=== PATIENT | female | born 2000 | race Caucasian/White ===

== ENCOUNTER → 2020-12-03 | Outpatient (CLI) | payer OTHER ==
--- NOTE | 2020-12-03 18:46 | REP ---
INDICATION: CHEST PAIN AND TIGHTNESS, DYSPNEA. Episodic exertional difficulties with pain tightness and dyspnea wheezing and coughing. COMPARISON: None. TECHNIQUE: Helical scanning is acquired. 3 mm axial images are generated. Coronal and sagittal MPR and coronal MIP images are generated. FINDINGS: Digital preliminary teacher kindergarten radiographs unremarkable. Nipple jewelry is noted bilaterally and incidentally. On axial CT images, there is a curvilinear metallic density in the upper-outer quadrant of the left breast. The patient gives a history of previous breast biopsy. No extra thoracic mass or adenopathy is seen. There is moderate stool in the visualized loops of colon in the upper abdomen. There is a peripheral low-density area in the spleen posterolaterally measuring 1.9 cm in greatest diameter. This is compatible with a small splenic cyst. Visualized upper abdominal structures are otherwise unremarkable. No hilar or mediastinal mass or adenopathy is seen. Aorta appears normal in caliber and contour. Thyroid lobes are normal and homogeneous as visualized. On lung window settings, the lung herrera are clear. No infiltrate is seen. No abnormal pulmonary nodule or lung mass lesion is seen. There is no evidence of atelectasis or fibrosis. No endobronchial or endotracheal abnormality is observed. No extrinsic or vascular lesion is appreciated. Bone window settings show no bony destructive lesion. IMPRESSION: 1. Small cyst in the spleen noted incidentally. 2. Moderate stool stool visualized in the upper colon. 3. No active cardiopulmonary disease. <Electronically signed by Levi Ramos > 12/03/20 [id number]
== END ==
LOC: M RAD 07:24
PROVIDERS: ATTEND Physician Assistant
DX: R06.00 Dyspnea, unspecified (principal); R07.89 Other chest pain

== ENCOUNTER → 2021-01-22 | Outpatient (CLI) | payer OTHER ==
[~2021-01-22] MED LIST: METHACHOLINE KIT (J7674) INH ONE
--- NOTE | 2021-01-22 15:27 | PFTRPT ---
Site: [facility], [address] [place], [address] ID: [id number] Name: TED STOKES Visit Date: 01/22/2021 Second ID: [id number] Referring Doctor: Dahlia Metzger Reviewing Doctor: Morgan Charlton MD Pin Ticket Machine Operator: Louis LARSON RRT Age: 20 : 2000 Sex: Female Race: Height: 64.00 Inches Weight: 150.00 Lbs BSA: 1.73 Order IDs: [id number] Requested Test(s): <RESP-PFT.METH CHAL> Diagnosis: R06.02 of albuterol for post bronchodilator. Review Status: Not Reviewed Pre-Bronch Post-Bronch Pred Actual %Pred Actual %Chng SPIROMETRY FVC (L) 3.79 4.11 108 4.06 -1 FEV1 (L) 3.30 3.53 107 3.41 -3 FEV1/FVC (%) 86 86 99 84 -2 FEF 25% (L/sec) 5.90 6.28 106 5.88 -6 FEF 50% (L/sec) 4.74 4.76 100 4.52 -4 FEF 75% (L/sec) 2.09 2.12 101 1.65 -22 FEF 25-75% (L/sec) 3.70 4.02 108 3.59 -10 FEF Max (L/sec) 6.87 6.76 98 6.23 -7 FIVC (L) 3.86 3.05 -20 FIF 50% (L/sec) 4.20 6.92 164 3.71 -46 FIF Max (L/sec) 7.10 4.67 -34 Expiratory Time (sec) 6.91 6.44 -6 Back Extrap Vol (L) 0.11 0.12 12 Time To FEFmax (sec) 0.101 0.111 9
== END ==
LOC: M CARPUL 14:35
PROVIDERS: ATTEND Nurse Practitioner Adult Health
DX: R06.02 Shortness of breath (principal)
CPT/HCPCS: 94070; J7674

== ENCOUNTER 2021-03-05 09:57 | Emergency (ER) | payer OTHER ==
[~2021-03-05] VITALS: Ht 162.6 cm; Wt 68.1 kg
[2021-03-05] MEDS ORDERED: CONC18TA14 PO (10:09)
[2021-03-05] MEDS ORDERED: LEVO-95 PO (10:09)
[2021-03-05] MEDS ORDERED: BUPR15TASR PO (10:09)
[2021-03-05] MEDS ORDERED: NS 1,000 ML IV ONE (11:15)
[2021-03-05 11:58] LABS: BASO % 0.2 % (0.0-1.0); EOS # 0.2 10^3/uL (0.0-0.5); EOS % 2.1 % (0.0-3.0); HEMATOCRIT 38.9 % (36.0-47.0); HEMOGLOBIN 12.8 g/dl (12.0-15.5); LYMPH # 1.9 10^3/uL (1.5-5.0); LYMPH % 20.9 % (24.0-44.0); MEAN CORPUSCULAR HGB CONC 32.9 g/dl (32.0-36.5); MEAN CORPUSCULAR VOLUME 91.3 fl (80.0-96.0); MONO # 0.8 10^3/uL (0.0-0.8); MONO % 9.1 % (2.0-8.0); NEUTROPHILS # 6.2 10^3/uL (1.5-8.5); NEUTROPHILS % 67.4 % (36.0-66.0); PLATELET COUNT, AUTOMATED 234 10^3/uL (150-450); RED BLOOD COUNT 4.26 10^6/uL (4.00-5.40); WHITE BLOOD COUNT 9.2 10^3/uL (4.0-10.0)
[2021-03-05 12:48] LABS: BLOOD UREA NITROGEN 12 MG/DL (7-18); CALCIUM LEVEL 9.3 MG/DL (8.5-10.1); CARBON DIOXIDE LEVEL 29 MEQ/L (21-32); CHLORIDE LEVEL 105 MEQ/L (98-107); GLOMERULAR FILTRATION RATE > 60.0 (>60); GLUCOSE, FASTING 80 MG/DL (70-100); HCG, SERUM QUANTITATIVE < 1.0 MIU/ML; POTASSIUM SERUM 3.8 MEQ/L (3.5-5.1); SODIUM LEVEL 139 MEQ/L (136-145)
--- NOTE | 2021-03-05 12:50 | REP ---
INDICATION: RIGHT FLANK PAIN, RECURRENT UTI. COMPARISON: None. TECHNIQUE: Real-time sonographic evaluation of the kidneys is performed. FINDINGS: Renal cortical echogenicity pattern is normal bilaterally and contours are smooth. There is no evidence of hydronephrosis, cyst, mass, or calculus in either kidney. The right kidney measures 10.1 x 5.9 x 5.8 cm. Left renal dimensions are 9.7 x 4.8 x 5.4 cm. The urinary bladder is unremarkable. Incidental note is made of a cyst in the superior spleen 1.9 cm in diameter, as well as a calcified granuloma just inferior to that. IMPRESSION: Negative renal ultrasound. <Electronically signed by Alejandro Zhao > 03/05/21 [id number]
[2021-03-05] MEDS ORDERED: CEFD300CAP PO (13:52)
[2021-03-05 13:56] VITALS: BP 126/75
== END 2021-03-05 13:59 | disposition home or self-care (01) ==
LOC: M ED 09:57
DX: N39.0 Urinary tract infection, site not specified (principal)

== ENCOUNTER 2021-03-18 13:06 | Inpatient (IN) | payer OTHER ==
[~2021-03-18] VITALS: Ht 154.9 cm; Wt 67.3 kg
[~2021-03-18 13:06] MED LIST changes: +BUPR15TASR PO; +CEFD300CAP PO; +CONC18TA14 PO; +LEVO-95 PO; -METHACHOLINE KIT (J7674) INH ONE
[2021-03-18 14:41] LABS: HEMATOCRIT 39.2 % (36.0-47.0); HEMOGLOBIN 13.2 g/dl (12.0-15.5); MEAN CORPUSCULAR HEMOGLOBIN 30.6 pg (27.0-33.0); MEAN CORPUSCULAR HGB CONC 33.7 g/dl (32.0-36.5); PLATELET COUNT, AUTOMATED 249 10^3/uL (150-450); RED BLOOD COUNT 4.31 10^6/uL (4.00-5.40); WHITE BLOOD COUNT 11.5 10^3/uL (4.0-10.0)
[2021-03-18 15:00] LABS: AMPHETAMINES LEVEL URINE NEGATIVE (NEGATIVE); BARBITURATES URINE NEGATIVE (NEGATIVE); BENZODIAZEPINES URINE NEGATIVE (NEGATIVE); CANNABINOIDS URINE NEGATIVE (NEGATIVE); COCAINE METABOLITE URINE NEGATIVE (NEGATIVE); METHADONE URINE NEGATIVE (NEGATIVE); OPIATES URINE NEGATIVE (NEGATIVE); PHENCYCLIDINE URINE NEGATIVE (NEGATIVE)
[2021-03-18 15:02] LABS: HCG, SERUM QUALITATIVE NEGATIVE (NEGATIVE)
[2021-03-18 15:16] LABS: ACETAMINOPHEN LEVEL < 2.0 UG/ML (10.0-30.0); ALBUMIN 3.8 GM/DL (3.2-5.2); ALT/SGPT 22 U/L (12-78); BILIRUBIN,DIRECT 0.2 MG/DL (0.0-0.2); BILIRUBIN,TOTAL 0.9 MG/DL (0.2-1.0); BLOOD UREA NITROGEN 10 MG/DL (7-18); CALCIUM LEVEL 8.4 MG/DL (8.5-10.1); CARBON DIOXIDE LEVEL 25 MEQ/L (21-32); CHLORIDE LEVEL 105 MEQ/L (98-107); CREATININE FOR GFR 0.89 MG/DL (0.55-1.30); ETHYL ALCOHOL (ETHANOL) < 0.003 % (0.000-0.010); GLOMERULAR FILTRATION RATE > 60.0 (>60); GLUCOSE, FASTING 100 MG/DL (70-100); SALICYLATE LEVEL < 1.7 MG/DL (5.0-30.0); SODIUM LEVEL 138 MEQ/L (136-145); THYROID STIMULATING HORMONE 0.635 uIU/ML (0.358-3.740); TOTAL PROTEIN 7.1 GM/DL (6.4-8.2)
[2021-03-18 17:27] LABS: RSV AMPLIFICATION NEGATIVE (NEGATIVE)
[2021-03-18] MEDS ORDERED: MOM 30ML SUSPENSION UDC PO PRN (19:15)
[2021-03-18] MEDS ORDERED: MAALOX 30 ML SUSP *UDC PO PRN (19:15)
[2021-03-18] MEDS ORDERED: D-10TAB3 PO (19:20)
[2021-03-18] MEDS ORDERED: VENL150C43 PO (19:20)
[2021-03-18] MEDS ORDERED: MULTTAB20 PO (19:20)
[2021-03-18] MEDS ORDERED: ONDA-83 PO (19:20)
[2021-03-18] MEDS ORDERED: MECL-109 PO (19:20)
[2021-03-18] MEDS ORDERED: BUPR150T12 PO (19:20)
[2021-03-18] MEDS ORDERED: FISH1000 PO (19:20)
[2021-03-18] MEDS ORDERED: COMMENTS (19:24)
[2021-03-18 23:43] VITALS: BP 96/51
[2021-03-19] MEDS ORDERED: ONDANSETRON 4 MG TAB PO PRN
[2021-03-19] MEDS: LEVOTHYROXINE 150MCG TABLET (0.15MG) PO SCH (06:09)
[2021-03-19] MEDS ORDERED: INFLUENZA QUADRIVALENT PF VACCINE 0.5ML SYRINGE IM ONE (09:00)
[2021-03-19] MEDS ORDERED: VENLAFAXINE **XR** 75MG CAPSULE PO SCH (09:00)
[2021-03-19] MEDS: buPROPion **XL** TABLET 150MG (WELLBUTRIN XL) PO SCH (09:25)
[2021-03-19] MEDS: METHYLPHENIDATE ER 18 MG TABLET (CONCERTA) PO SCH (09:25)
[2021-03-19] MEDS: VITAMIN D 1,000 INTERNATIONAL UNITS TABLET PO SCH (09:25)
[2021-03-19] MEDS: ACETAMINOPHEN TAB 650MG DOSE (2X325MG) PO PRN (09:25)
[2021-03-19] MEDS ORDERED: ADVA115A INH (10:09)
[2021-03-19] MEDS ORDERED: PROAAER10 INH (10:09)
[2021-03-19] MEDS ORDERED: ALBUTEROL 90 MCG/ACT 8GM HFA INHALER INH PRN ×2 (12:45→13:35)
--- NOTE | 2021-03-19 13:34 | HPEPDOC ---
General Date of Admission March 18, 2021 at 19:12 Date of Service: March 19, 2021 Chief Complaint The patient is a 20-year-old female admitted with a reason for visit of MHE. 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 Today she denies any complaints. Home Medications Scheduled Bupropion Hcl (Bupropion Xl) 150 Mg Tab.er.24h, 150 MG PO DAILY, (Reported) Cholecalciferol (Vitamin D3) (Vitamin D3) 25 Mcg Tablet, 25 MCG PO DAILY, (Reported) Fluticasone Propion/Salmeterol (Advair Hfa 115-21 Mcg Inhaler) 12 Gm Hfa.aer.ad, 2 PUFF INH BID for ASTHMA, (Reported) Methylphenidate HCl (Concerta) 18 Mg Tab.er.24, 18 MG PO DAILY, (Reported) [place]-3 Fatty Acids/Fish Oil (Fish Oil 1,000 mg Capsule) 1 Each Capsule, 1,000 MG PO DAILY, (Reported) No122/Iron/Folic Acid ( Multi Tablet) 1 Each Tablet, 1 TAB PO DAILY, (Reported) Venlafaxine HCl (Venlafaxine HCl ER) 150 Mg Cap.er.24h, 150 MG PO DAILY, (Reported) Scheduled PRN Albuterol Sulfate (Proair Hfa) 8.5 Gm Hfa.aer.ad, 2 PUFF INH QID PRN for SHORTNESS OF BREATH, (Reported) Meclizine HCl (Motion Sickness) 25 Mg Tablet, 25 MG PO TID PRN for DIZZINESS, (Reported) Ondansetron HCl (Ondansetron HCl) 4 Mg Tablet, 4 MG PO Q6H PRN for NAUSEA OR VOMITING, (Reported) Allergies Coded Allergies: No Known Drug Allergies (Verified Allergy, Unknown, 01/21/21) Past Medical History Medical History Asthma, hypothyroid, depression, anxiety Surgical History wisdom tooth removal. Family History Significant Family History: Asthma (brother and father), Hypertension (mother), Other (Fathr from neuroendocrine tumor, also had anxiety and d epression) Social History * Smoker: non-smoker Alcohol: other (about 2 drinks 4 times a week) Drugs: denies A-FIB/CHADSVASC A-FIB History Current/History of A-Fib/PAF?: No Review of Systems Constitutional: Denies: Chills, Fever, Night Sweats Eyes: Denies: Pain, Vision change ENT: Denies: Head Aches, Ear Pain, Dysphagia Skin: Denies: Rash, Lesions, Breakdown Pulmonary: Denies: Dyspnea, Cough Cardiovascular: Denies: Chest Pain, Palpitations, Orthopnea, Paroxysmal Noc. Dyspnea, Lt Headedness Gastrointestinal: Denies: Nausea, Vomiting, Abdominal Pain, Diarrhea Genitourinary: Denies: Dysuria, Frequency, Incontinence, Retention Physical Examination General Exam: Positive: Alert, Cooperative, No Acute Distress Eye Exam: Positive: PERRLA, Conjunctiva & lids normal, EOMI; Negative: Sclera icteric ENT Exam: Positive: Atraumatic, Mucous membr. moist/pink, Pharynx Normal Chest Exam: Positive: Clear to auscultation, Normal air movement Heart Exam: Positive: Rate Normal, Regular Rhythm, Normal S1, Normal S2; Negative: Murmurs, Rubs Abdomen Exam: Positive: Normal bowel sounds, Soft; Negative: Tenderness, Hepatospenomegaly Vital Signs Vital Signs Date Time Temp Pulse Resp B/P (MAP) Pulse Ox O2 Delivery O2 Flow Rate FiO2 03/19/21 10:11 Room Air 03/18/21 23:43 97.4 106 18 96/51 (66) 97 Laboratory Data Labs 24H Laboratory Tests 2 03/18/21 14:21: Nucleated Red Blood Cells % (auto) 0.0, Urine Color YELLOW, Urine Appearance HAZY, Urine pH 6.0, Urine Specific [place] 1.005, Urine Protein NEGATIVE, Urine Glucose (UA) NEGATIVE, Urine Ketones NEGATIVE, Urine Blood NEGATIVE, Urine Nitrite NEGATIVE, Urine Bilirubin NEGATIVE, Urine Urobilinogen 0.2, Urine Leukocyte Esterase NEGATIVE, Urine WBC (Auto) 1, Urine RBC (Auto) 1, Urine Hyaline Casts (Auto) 0, Urine Bacteria (Auto) 1+H, Urine Squamous Epithelial Cells 6, Urine Sperm (Auto) , Anion Gap 8, Glomerular Filtration Rate > 60.0, Calcium Level 8.4L, Total Bilirubin 0.9, Direct Bilirubin 0.2, Aspartate Amino Transf (AST/SGOT) 19, Alanine Aminotransferase (ALT/SGPT) 22, Alkaline Phosphatase 87, Total Protein 7.1, Albumin 3.8, Albumin/Globulin Ratio 1.2, Thyroid Stimulating Hormone (TSH) 0.635, Human Chorionic Gonadotropin, Qual NEGATIVE, Salicylates Level < 1.7L, Urine Opiates Screen NEGATIVE, Urine Methadone Screen NEGATIVE, Acetaminophen Level < 2.0L, Urine Barbiturates Screen NEGATIVE, Urine Phencyclidine Screen NEGATIVE, Urine Amphetamines Screen NEGATIV E, Urine Benzodiazepines Screen NEGATIVE, Urine Cocaine Metabolite Screen NEGATIVE, Urine Cannabinoids Screen NEGATIVE, Ethyl Alcohol Level < 0.003 03/18/21 16:31: Coronavirus (COVID-19)(PCR) NEGATIVE, Influenza Type A (RT-PCR) NEGATIVE, Influenza Type B (RT-PCR) NEGATIVE, Respiratory Syncytial Virus (PCR) NEGATIVE CBC/BMP Laboratory Tests 03/18/21 14:21 Assessment/Plan 20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 Depression as per psychiatry Asthma continue home advair. Plan / VTE VTE Prophylaxis Ordered?: No MONICA DALAL MD March 19, 2021 12:42
[2021-03-19] MEDS: ADVAIR HFA 115/21MCG INHALER INH SCH ×2 (14:28→20:39)
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
[2021-03-19 16:13] VITALS: BP 118/67
[2021-03-19] MEDS: traZODone 50 MG TAB PO PRN (20:39)
[2021-03-20] MEDS: LEVOTHYROXINE 150MCG TABLET (0.15MG) PO SCH (06:04)
[2021-03-20 06:56] VITALS: BP 88/52
[2021-03-20] MEDS: ADVAIR HFA 115/21MCG INHALER INH SCH ×2 (08:58→21:42)
[2021-03-20] MEDS: METHYLPHENIDATE ER 18 MG TABLET (CONCERTA) PO SCH (08:59)
[2021-03-20] MEDS: buPROPion **XL** TABLET 150MG (WELLBUTRIN XL) PO SCH (08:59)
[2021-03-20] MEDS: VITAMIN D 1,000 INTERNATIONAL UNITS TABLET PO SCH (08:59)
[2021-03-20] MEDS: VENLAFAXINE **XR** 75MG CAPSULE PO SCH (08:59)
[2021-03-20] MEDS: ACETAMINOPHEN TAB 650MG DOSE (2X325MG) PO PRN (09:00)
--- NOTE | 2021-03-20 12:06 | MHIPNPDOC ---
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 She reports that she had a recent termination of a relationship that caused increased insecurities about herself, she is currently in the process of being med-boarded, she has financial concerns states "I am in a tight spot." Says of the pending chapter 15 that she had an emotional and disruptive reaction twice to [employer]. "I am have too many emotions attached to these stories, I can tell you but I am not sure I can do it without giving too much information." She reports that she considered allowing the case to be hea rd as a court-martial case but was told that this may also have civilian implications for her, as her record may be reported on a police record. She reports no past attempts but has had suicidal ideations. . She reports that this time of the year is very difficult for her as her father 03/26/2020 from cancer. States that she feels overwhelmed and feels that removing herself from the outside stressors would be good for her. VITAL SIGNS: See below. CURRENT MEDICATIONS: See below. 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 Speech: Is fluid, conversant, normal rate, tone and volume Language skills are intact Thought processes including: linear and goal oriented Thought content: denies depression and anxiety. Denies suicidal/homicidal ideation, planning or intent. Abstract reasoning, and computation: fair Description of associations: denies, none observed Description of abnormal or psychotic thoughts: denies, none observed. Judgment: fair Insight: fair Orientation: alert and oriented to person, place, time and situation Recent and remote memory: intact Attention span and concentration: good Language: expansive Fund of knowledge: average Mood: Euthymic Mood Affect: reactive DIAGNOSES: Major depressive disorder, single episode, mild ADHD Unspecified anxiety disorder ASSESSMENT: Patient found in room, sleeping. Patient denies that she is having suicidal ideations, reports that her last thought of self-harm was last evening with no real intent to hurt herself. She states that her anxiety stems from the Chapter 15 wondering what her sentence will be, states that she is future oriented and will stay in [place] area and go to [employer] and get a degree. Rates her depression a 2/10 and anxiety is the same. She appears to have improvement in depression and anxiety, [facility] MANAGEMENT PLAN: Continue all medications - discharge tomorrow. TIME SPENT: 25 minutes. Vital Signs Vital Signs Date Time Temp Pulse Resp B/P (MAP) Pulse Ox O2 Delivery O2 Flow Rate FiO2 03/20/21 06:56 99.0 80 16 88/52 (64) 98 Room Air Current Medications Current Medications Medications (Trade) Dose Ordered Sig/Margie Route PRN Reason Start Time Stop Time Status Last Admin Dose Admin Acetaminophen (Tylenol Tab) 650 mg Q6HP PRN PO HEADACHE or DISCOMFORT 03/18/21 19:15 03/20/21 09:00 Al Hydrox/Mg Hydrox/Simethicone (Mylanta) 30 ml Q4HP PRN PO HEARTBURN/INDIGESTION 03/18/21 19:15 Albuterol Sulfate (Proventil, Ventolin Hfa) 2 puff Q6HP PRN INH SHORTNESS OF BREATH 03/19/21 12:45 Albuterol Sulfate (Proventil, Ventolin Hfa) 2 puff QID PRN INH SHORTNESS OF BREATH 03/19/21 13:35 UNV Bupropion HCl (Wellbutrin Xl) 150 mg DAILY PO 03/19/21 09:00 03/20/21 08:59 Home Med (Med Rec Complete!) ASDIRECTED XX 03/18/21 19:25 03/18/21 19:25 DC Levothyroxine Sodium (Synthroid) 150 mcg DAILY@0600 PO 03/19/21 06:00 03/20/21 06:04 Magnesium Hydroxide (Milk Of Magnesia) 30 ml DAILYPRN PRN PO CONSTIPATION 03/18/21 19:15 Methylphenidate HCl (Concerta) 18 mg DAILY PO 03/19/21 09:00 03/20/21 08:59 Ondansetron HCl (Zofran) 4 mg Q6H PRN PO NAUSEA OR VOMITING 03/19/21 00:00 Salmeterol Xinafoate/ Fluticasone (Advair Hfa ) 2 puff BID INH 03/19/21 09:00 03/20/21 08:58 Trazodone HCl (Desyrel) 50 mg QHSP PRN PO INSOMNIA 03/18/21 19:15 03/19/21 20:39 Venlafaxine HCl (Effexor Xr) 150 mg DAILY PO 03/19/21 09:00 03/19/21 14:12 DC 03/19/21 09:25 Venlafaxine HCl (Effexor Xr) 225 mg DAILY PO 03/20/21 09:00 03/20/21 08:59 Vitamin D (Vitamin D) 1,000 units DAILY PO 03/19/21 09:00 03/20/21 08:59 Allergies Coded Allergies: No Known Drug Allergies (Verified Allergy, Unknown, 01/21/21) JOSE LOPES NP March 20, 2021 12:06
[2021-03-20 16:19] VITALS: BP 113/68
[2021-03-20] MEDS: traZODone 50 MG TAB PO PRN (21:42)
[2021-03-21] MEDS: LEVOTHYROXINE 150MCG TABLET (0.15MG) PO SCH (06:02)
[2021-03-21 06:29] VITALS: BP 110/57
[2021-03-21] MEDS: METHYLPHENIDATE ER 18 MG TABLET (CONCERTA) PO SCH (08:21)
[2021-03-21] MEDS: VITAMIN D 1,000 INTERNATIONAL UNITS TABLET PO SCH (08:21)
[2021-03-21] MEDS: ADVAIR HFA 115/21MCG INHALER INH SCH (08:21)
[2021-03-21] MEDS: VENLAFAXINE **XR** 75MG CAPSULE PO SCH (08:22)
[2021-03-21] MEDS: buPROPion **XL** TABLET 150MG (WELLBUTRIN XL) PO SCH (08:22)
[2021-03-21] MEDS ORDERED: BUPR150T12 PO (09:39)
[2021-03-21] MEDS ORDERED: LEVO150T7 PO (09:39)
[2021-03-21] MEDS ORDERED: VENL75CA47 PO (09:39)
--- NOTE | 2021-03-21 10:45 | MHDSPDOC ---
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 She reports that she had a recent termination of a relationship that caused increased insecurities about herself, she is currently in the process of being med-boarded, she has financial concerns states "I am in a tight spot." Says of the pending chapter 15 that she had an emotional and disruptive reaction twice to [employer]. "I am have too many emotions attached to these stories, I can tell you but I am not sure I can do it without giving too much information." She reports that she considered allowing the case to be heard as a court-martial case but was told that this may also have civilian implications for her, as her record may be reported on a police record. She reports no past attempts but has had suicidal ideations. . She reports that this time of the year is very difficult for her as her father 03/26/2020 from cancer. States that she feels overwhelmed and feels that removing herself from the outside stressors would be good for her. VITAL SIGNS: See below. CONSULTANTS INVOLVED: See Medical H + P by Hospitalist TREATMENT AND PROGRESS ON THE UNIT: Patient was admitted to the [facility] on a 9.39 legal status he was afforded the following treatment modalities: 1) Individual Therapy 2) Group Therapy 3) Medication Management 4) Milieu Therapy 5) Safe Environment HOSPITAL COURSE: Patient was admitted to [facility] on a 9.39 legal status. She was agreeable to medication changes and stated that she did not want to be discontinued off Effexor because this caused her withdrawal symptoms when she missed doses. This was increased to Effexor 225 mg. She was agreeable to group therapy and individual sessions. Much of depression and anxiety stemmed from this Chapter 15 and her feeling both remorseful and fearful of the consequences. 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 She is hopeful that she will be able to visit her family in [place] soon and states that her mood has improved while hospitalized. DISCHARGE ASSESSMENT: In today's interview, patient is alert and oriented, pts dress is appropriate. Hygiene and grooming is well-kempt. Smiles on approach and is pleasant and engaged in the interview. Denies depression and anxiety. Denies suicidal and homicidal ideation, planning or intent. Denies and is not observed with chaka, psychotic symptoms of delusions, bizarre thinking, obsessions, paranoia, ruminations illogical thoughts, flight of ideas or having poor insight and judgement. Patient has normal mentation, declines further hospitalization on a voluntary status and meets criteria for discharge today. Patient encouraged to return to hospital if symptoms worsen or change and encouraged to call unit if he/she/they needs to speak to provider for questions regarding medications or care. 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 Speech: Is fluid, conversant, normal rate, tone and volume Language skills are intact Thought processes including: linear and goal oriented Thought content: denies depression and anxiety. Denies suicidal/homicidal ideation, planning or intent. Abstract reasoning, and computation: fair Description of associations: denies, none observed Description of abnormal or psychotic thoughts: denies, none observed. Judgment: fair Insight: fair Orientation: alert and oriented to person, place, time and situation Recent and remote memory: intact Attention span and concentration: good Language: expansive Fund of knowledge: average Mood: Euthymic Mood Affect: reactive MEDICATIONS ON DISCHARGE: See Medication Reconciliation PLAN/FOLLOWUP ARRANGEMENTS: The amount of time spent in the coordination of care for this patient was approximately 35 minutes. ETOH/Disorder Med Rx ETOH/DRUG DISORDER RX: Offrd @ d/c & pt refused (Patient no longer smokes but does not feel that her drinking is a problem, does not want Rx) Vital Signs/I&Os Vital Signs Date Time Temp Pulse Resp B/P (MAP) Pulse Ox O2 Delivery O2 Flow Rate FiO2 03/21/21 06:29 97.7 95 16 110/57 (74) 99 Room Air Medications Scheduled Bupropion Hcl (Bupropion Xl) 150 Mg Tab.er.24h, 150 MG PO DAILY for Depression, #7 Cholecalciferol (Vitamin D3) (Vitamin D3) 25 Mcg Tablet, 25 MCG PO DAILY, (Reported) Fluticasone Propion/Salmeterol (Advair Hfa 115-21 Mcg Inhaler) 12 Gm Hfa.aer.ad, 2 PUFF INH BID for ASTHMA, (Reported) Levothyroxine Sodium (Levothyroxine Sodium) 150 Mcg Tablet, 150 MCG PO DAILY@0600 for Thyroid, #7 Methylphenidate HCl (Concerta) 18 Mg Tab.er.24, 18 MG PO DAILY, (Reported) Brilliant-3 Fatty Acids/Fish Oil (Fish Oil 1,000 mg Capsule) 1 Each Capsule, 1,000 MG PO DAILY, (Reported) No122/Iron/Folic Acid ( Multi Tablet) 1 Each Tablet, 1 TAB PO DAILY, (Reported) Venlafaxine HCl (Venlafaxine HCl ER) 75 Mg Cap.er.24h, 225 MG PO DAILY for Depression, #21 Scheduled PRN Albuterol Sulfate (Proair Hfa) 8.5 Gm Hfa.aer.ad, 2 PUFF INH QID PRN for SHORTN ESS OF BREATH, (Reported) Meclizine HCl (Motion Sickness) 25 Mg Tablet, 25 MG PO TID PRN for DIZZINESS, (Reported) Ondansetron HCl (Ondansetron HCl) 4 Mg Tablet, 4 MG PO Q6H PRN for NAUSEA OR VOMITING, (Reported) Allergies Coded Allergies: No Known Drug Allergies (Verified Allergy, Unknown, 01/21/21) JOSE LOPES NP March 21, 2021 10:45
== END 2021-03-21 11:05 | disposition home or self-care (01) | DRG 885 ==
LOC: M ED 13:06 → M ED INP 19:12 → M PSY 23:30
PROVIDERS: ADMIT Psychiatry & Neurology Psychiatry; ATTEND Psychiatry & Neurology Psychiatry
DX: F32.0 Major depressive disorder, single episode, mild (principal); R45.851 Suicidal ideations; F41.9 Anxiety disorder, unspecified; F90.9 Attention-deficit hyperactivity disorder, unspecified type; Z79.899 Other long term (current) drug therapy; E03.9 Hypothyroidism, unspecified; J45.909 Unspecified asthma, uncomplicated; I10 Essential (primary) hypertension

== ENCOUNTER 2021-09-16 11:15 | Emergency (ER) | payer OTHER ==
[~2021-09-16] VITALS: Ht 162.6 cm; Wt 66.5 kg
[~2021-09-16 11:15] MED LIST changes: +ADVA115A INH; +BUPR150T12 PO; +COMMENTS; +D-10TAB3 PO; +FISH1000 PO; +LEVO150T7 PO; +MECL-109 PO; +MULTTAB20 PO; +ONDA-83 PO; +PROAAER10 INH; +VENL150C43 PO; +VENL75CA47 PO
[2021-09-16 11:16] VITALS: BP 120/69
--- OUTSIDE RECORDS SUMMARY | 2021-09-16 11:22 | CCD | Continuity of Care Document ---
Author Stella Dias Organization Unknown Address [address] [place] [address] Phone [phone] Care Team Providers Care Electric Golf Cart Repairers Name Role Phone Aniceto Montesinos P.A.-C Unavailable Problems Active Problems Provider Date Mild persistent asthma JINA Roberts Onset: 01/23/2021 Social History Type Date Description Comments Sex Unknown Tobacco Use Start: 10/26/14 End: 10/26/19 Patient is a forme r smoker Pt smoked 3 cigarettes/day for 4-5 years Smoking Status Reviewed: 03/12/21 Patient is a former smoker Pt smoked 3 cigarettes/day for 4-5 years Allergies and adverse reactions Description No Known Drug Allergies Medications Active Medications SIG Qnty Indications Ordering Provide r Date Advair HFA 115-21mcg/Act Aerosol 2 puff twice a day 12gm J45.30 JINA Roberts 01/23/2021 Ventolin HFA 108(90Base) mcg/Act A erosol 2 puffs four times a day as needed 18units J45.30 JINA Roberts 01/23/2021 Aerochamber Plus Krish-Vu Misc use with inhaler as needed 1units J45.30 JINA Roberts 01/23/2021 Multi-Vitamin Tablets 1 by mouth every day Unknown Venlafaxine HCL ER 150mg Caps ER 2 4HR 1 tab by mouth every day Unknown 0 Bupropion Hydrochloride ER (SR) 150mg Tablets ER 12HR 1 tab by mouth daily Unknown 000 Align 4mg Capsules 1 tab by mouth every day 30caps Unknown Nitrofurantoin Monohyd Macro prn Unknown Concerta 18mg Tablets ER 1 tab by mouth every day Unknown Immunizations Description No Information Available Vital Signs Date Vital Result Comment 03/12/2021 8:52am BP Systolic 120 mmHg BP Diastolic 68 mmHg Heart Rate 90 /min O2 % BldC Oximetry 99 % Height 64 inches 5'4" Weight 149.50 lb BMI (Body Mass Index) 25.7 kg/m2 [place] Body Weight 120 lb Weight 67.813 kg BSA (Body Surface Area) 1.73 m2 01/23/2021 3:41pm BP Systolic 122 mmHg BP Diastolic 80 mmHg Heart Rate 86 /min O2 % BldC Oximetry 99 % Height 64 inches 5'4" Weight 156.00 lb BMI (Body Mass Index) 26.8 kg/m2 [place] Body Weight 120 lb Weight 70.762 kg BSA (Body Surface Area) 1.76 m2 Results Test Acquired Date Facility Test Result H/L Range Note FVL/Yaya 03/12/2021 [facility] SEE IMAGE FVC-Pred 3.78 L FVC-Pre 4.37 L FVC-%Pred-Pre 115 L FVC-LLN 3.09 L Fev1-Pred 3.31 L Fev1-Pre 3.77 L Fev1-%Pred-Pre 113 L Fev1-LLN 2.72 L Fev6-Pred 3.79 L Fev6-Pre 4.37 L Fev6-%Pred-Pre 115 L Fev6-LLN 3.11 L Kpy5pmc-Znwc 86 % Gyw8omy-Jnn 86 % Qrn9fuu-%Pred-Pre 99 % Tld1ptq-OGX 77 % Nbg6tam-Onfw 100 % Xsn3ugc-Psf 100 % Eex6psn-%Pred-Pre 99 % FEFMax-Pred 6.85 L/E/sec FEFMax-Pre 7.17 L/E/sec FEFMax-%Pred-Pre 104 L/E/sec FEFMax-LLN 5.13 L/E/sec Qja8403-Adct 3.72 L/E/sec Rzm6041-Ybn 4.21 L/E/sec Boy5610-%Pred-Pre 113 L/E/sec Nue7094-RGX 2.48 L/E/sec ExpTime-Pre 5.81 sec Jrn1cfo6-Gqhe 87 % Mtr0ann3-Zkv 86 % Uhy2npp0-%Pred-Pre 99 % Ane4bji0-CXH 78 % Procedures Date Code Description Status 03/12/2021 34166 Office/Outpatient Established Lo w MDM 20-29 Min Completed 03/12/2021 48300 Spirometry Completed Medical Devices Description No Information Available Encounters Type Date Location Provider Dx Diagnosis Office Visit 03/12/2021 9:00a [facility] JINA Townsend J45.30 Mild persistent asthma, uncomplicated Assessments Date Code Description Provider 03/12/2021 J45.30 Mild persistent asthma, uncompli cated JINA Roberts Plan of Treatment Future Appointment(s):* 08/21/2021 8:00 am - JINA Roberts at [facility] 03/12/2021 - JINA Roberts* J45.30 Mild persistent asthma, uncomplicated * * New Labs:* FVL/Yaya, Scheduled: 08/21/21 * Follow up:* 1. Follow up visit in 5-6 months with fvl/spirometry. Functional Status Description No Information Available Mental Status Description No Information Available Referrals Description No Information Available
--- OUTSIDE RECORDS SUMMARY | 2021-09-16 11:22 | CCD | Continuity of Care Document ---
Author Stella Rodriguez PA Organization Unknown Address [facility] [place] [address] Phone [phone] Care Team Providers Care Flush Tester Name Role Phone [facility] MeddaHailee morrissey ghanshyam AUTM Unavailable Problems Active Problems Provider Date Female stress incontinence ODALYS Mayen Onset: 06/26/2021 History of chronic urinary tract infection ODALYS Pop Onset: 06/26/2021 Social History Type Date Description Comments Sex Unknown Tobacco Use Start: Unknown Never Smoked Cigarettes Tobacco Use Start: Unknown Never Smoked Cigars Tobacco Use Start: Unknown Never Smoked A Pipe Tobacco Use Start: Unknown Never Used Smokeless Tobacco ETOH Use Occasionally consumes alcohol Tobacco Use Start: Unknown Patient is a current smoker, smo kes every day Recreational Drug Use Denies Drug Use Allergies, Adverse Reactions, Alerts Description No Known Drug Allergies Medications Active Medications SIG Qnty Indications Ordering Provide r Date Wellbutrin SR 150mg Tablets ER 12H R 1 by mouth daily x 3 days, then 1 by mouth bid. Unkno wn Venlafaxine HCL 37.5mg Tablets 3 by mouth every day Unknown Collagen Ultra Capsules Unknown Vitamin Tablets Unknown Vitamin D3 25mcg (1000 Ut) Capsule s 1 by mouth every day Unknown Paragard Intrauterine Copper Contracepti ve T380a T380a IUD 1 iud for 10 years Unknown Immunizations Description No Information Available Vital Signs Date Vital Result Comment 05/17/2021 3:38pm BP Systolic 121 mmHg BP Diastolic 76 mmHg Heart Rate 94 /min O2 % BldC Oximetry 96 % Weight 145.00 lb Weight 65.772 kg Height 64 inches 5'4" BMI (Body Mass Index) 24.9 kg/m2 BSA (Body Surface Area) 1.71 m2 Results Test Acquired Date Facility Test Result H/L Range Note Inhouse [facility]a 05/17/2021 In Office [facility] Color Jaqueline Normal: Yellow Ua Appearance clear Normal: Clear Spec [place] 1.010 1.001-1.030 Ua PH Test Strip 6 5-9 Leukocytes - Normal: Negative Ua Nitrate - Normal: Negative Ua Protein - Normal: Negative Inhouse Glucose - Normal: Negative Ua Ketones - Noraml: Negative Urobilinogen - Normal: Negative Ua Bilirubin - Normal: Negative Blood - Noraml: Negative Procedures Date Code Description Status 05/17/2021 58255 Office/Outpatient New Low MDM 30 -44 Minutes Completed Medical Devices Description No Information Available Encounters Description No Information Available Assessments Date Code Description Provider 06/26/2021 Z87.440 Personal history of urinary (tra ct) infections ODALYS Mayen 06/26/2021 N39.3 Stress incontinence (female) (ma le) ODALYS Mayen 05/17/2021 N39.0 Urinary tract infection, site no t specified Tommy Robert M.D. 05/17/2021 Z71.2 Person consulting fo r explanation of examination or test findings Tommy Robert M.D. 05/17/2021 F17.210 Nicotine dependence, cigarettes, uncomplicated Tommy Robert M.D. Plan of Treatment 06/26/2021 - ODALYS Mayen* Z87.440 Personal history of urinary (tract) infections* Comments:* Patient with recurrent urinary tract infections and history of pyelonephritis and history of ovarian cyst was consulted via phone to discuss ultrasound results. Patient states that she is doing well without any UTI infection since last visit. Physical examination and urinalysis were not performed as this is a telemedicine consultation. Renal ultrasound done on 06/20/21 noted grossly unremarkable appearance of both kidneys. Renal and bladder US reviewed with Dr. Robert and the patient. No obvious findings that would make patient more prone to UTIs. Various options discussed including cystoscopy to further evaluate underlying cause of her UTI. We will schedule the patient for a cystoscopy with possible urethral di latation for further evaluation. Further treatment plan and follow up will be adjusted as needed depending on the cystoscopy findings. General and specific UTI preventive measures discussed with patient including increase in hydration and acidification of urine, proper bowel regimen and perineal hygiene.Patient voiced understanding and agreement with plan of care. * Follow up:* PRN * N39.3 Stress incontinence (female) (male)* Comments:* Patient reports likely stress in nature given the fact patient states she leaks small amounts with heavy exercises. She has not yet had any kids but plans to in the future. Once cystoscopy is done, if she would like to further pursue treatment, will refer for pelvic floor therapy. Advised Kegal exercises in the meantime. * Follow up:* PRN Functional Status Description No Information Available Mental Status Description No Information Available Referrals Description No Information Available
--- OUTSIDE RECORDS SUMMARY | 2021-09-16 11:22 | CCD ---
Author Author [facility] Organization [facility] Address Unknown Phone Unavailable Care Team Providers Care Player Development Executive Name Role Phone NO, PCP Unavailable Unavailable Nicola, L Dahlia DATA ENTRY SPECIALIST Unavailable Unavailable Nicola, L Dahlia DATA ENTRY SPECIALIST Unavailable Unavailable Nicola, L Dahlia DATA ENTRY SPECIALIST Unavailable Unavailable Nicola, L Dahlia DATA ENTRY SPECIALIST Unavailable Unavailable Nicola, L Dahlia DATA ENTRY SPECIALIST Unavailable Unavailable Nicola, L Dahlia DATA ENTRY SPECIALIST Unavailable Unavailable Nicola, L Dahlia DATA ENTRY SPECIALIST Unavailable Unavailable Nicola, L Dahlia DATA ENTRY SPECIALIST Unavailable Unavailable Nicola, L Dahlia DATA ENTRY SPECIALIST Unavailable Unavailable Nicola, L Dahlia DATA ENTRY SPECIALIST Unavailable Unavailable Nicola, L Dahlia DATA ENTRY SPECIALIST Unavailable Unavailable Nicola, L Dahlia DATA ENTRY SPECIALIST Unavailable Unavailable Nicola, L Dahlia DATA ENTRY SPECIALIST Unavailable Unavailable Nicola, L Dahlia DATA ENTRY SPECIALIST Unavailable Unavailable Nicola, L Dahlia DATA ENTRY SPECIALIST Unavailable Unavailable Nicola, L Dahlia DATA ENTRY SPECIALIST Unavailable Unavailable Nicola, L Dahlia DATA ENTRY SPECIALIST Unavailable Unavailable Nicola, L Dahlia DATA ENTRY SPECIALIST Unavailable Unavailable Nicola, L Dahlia DATA ENTRY SPECIALIST Unavailable Unavailable Nicola, L Dahlia DATA ENTRY SPECIALIST Unavailable Unavailable Nicola, L Dahlia DATA ENTRY SPECIALIST Unavailable Unavailable Nicola, L Dahlia DATA ENTRY SPECIALIST Unavailable Unavailable Nicola, L Dahlia DATA ENTRY SPECIALIST Unavailable Unavailable Nicola, L Dahlia DATA ENTRY SPECIALIST Unavailable Unavailable Nicola, L Dahlia DATA ENTRY SPECIALIST Unavailable Unavailable Chadd Oropeza MD Unavailable Unavailable Chadd Oropeza MD Unavailable Unavailable Chadd Oropeza MD Unavailable Unavailable Chadd Oropeza MD Unavailable Unavailable Chadd Oropeza MD Unavailable Unavailable Chadd Oropeza MD Unavailable Unavailable Anthony CANO MD Unavailable Unavailable Anthony CANO MD Unavailable Unavailable Anthony CANO MD Unavailable Unavailable Anthony CANO MD Unavailable Unavailable OBEN, T TOMMY MD Unavailable Unavailable OBEN, T TOMMY MD Unavailable Unavailable OBEN, T TOMMY MD Unavailable Unavailable OBEN, T TOMMY MD Unavailable Unavailable OBEN, T TOMMY MD Unavailable Unavailable OBEN, T TOMMY MD Unavailable Unavailable OBEN, T TOMMY MD Unavailable Unavailable OBEN, T TOMMY MD Unavailable Unavailable OBEN, T TOMMY MD Unavailable Unavailable OBEN, T TOMMY MD Unavailable Unavailable OBEN, T TOMMY MD Unavailable Unavailable OBEN, T TOMMY MD Unavailable Unavailable OBEN, T TOMMY MD Unavailable Unavailable OBEN, T TOMMY MD Unavailable Unavailable OBEN, T TOMMY MD Unavailable Unavailable OBEN, T TOMMY MD Unavailable Unavailable OBEN, T TOMMY MD Unavailable Unavailable OBEN, T TOMMY MD Unavailable Unavailable OBEN, T TOMMY MD Unavailable Unavailable OBEN, T TOMMY MD Unavailable Unavailable OBEN, T TOMMY MD Unavailable Unavailable OBEN, T TOMMY MD Unavailable Unavailable OBEN, T TOMMY MD Unavailable Unavailable OBEN, T TOMMY MD Unavailable Unavailable OBEN, T TOMMY MD Unavailable Unavailable OBEN, T TOMMY MD Unavailable Unavailable OBEN, T TOMMY MD Unavailable Unavailable OBEN, T TOMMY MD Unavailable Unavailable OBEN, T TOMMY MD Unavailable Unavailable OBEN, T TOMMY MD Unavailable Unavailable OBEN, T TOMMY MD Unavailable Unavailable OBEN, T TOMMY MD Unavailable Unavailable OBEN, T TOMMY MD Unavailable Unavailable OBEN, T TOMMY MD Unavailable Unavailable OBEN, T TOMMY MD Unavailable Unavailable OBEN, T TOMMY MD Unavailable Unavailable OBEN, T TOMMY MD Unavailable Unavailable OBEN, T TOMMY MD Unavailable Unavailable OBEN, T TOMMY MD Unavailable Unavailable OBEN, T TOMMY MD Unavailable Unavailable OBEN, T TOMMY MD Unavailable Unavailable OBEN, T TOMMY MD Unavailable Unavailable OBEN, T TOMMY MD Unavailable Unavailable OBEN, T TOMMY MD Unavailable Unavailable OBEN, T TOMMY MD Unavailable Unavailable OBEN, T TOMMY MD Unavailable Unavailable OBEN, T TOMMY MD Unavailable Unavailable OBEN, T TOMMY MD Unavailable Unavailable OBEN, T TOMMY MD Unavailable Unavailable OBEN, T TOMMY MD Unavailable Unavailable OBEN, T TOMMY MD Unavailable Unavailable OBEN, T TOMMY MD Unavailable Unavailable OBEN, T TOMMY MD Unavailable Unavailable OBEN, T TOMMY MD Unavailable Unavailable OBEN, T TOMMY MD Unavailable Unavailable OBEN, T TOMMY MD Unavailable Unavailable OBEN, T TOMMY MD Unavailable Unavailable OBEN, T TOMMY MD Unavailable Unavailable OBEN, T TOMMY MD Unavailable Unavailable OBEN, T TOMMY MD Unavailable Unavailable OBEN, T TOMMY MD Unavailable Unavailable OBEN, T TOMMY MD Unavailable Unavailable OBEN, T TOMMY MD Unavailable Unavailable OBEN, T TOMMY MD Unavailable Unavailable OBEN, T TOMMY MD Unavailable Unavailable OBEN, T TOMMY MD Unavailable Unavailable OBEN, T TOMMY MD Unavailable Unavailable OBEN, T TOMMY MD Unavailable Unavailable OBEN, T TOMMY MD Unavailable Unavailable OBEN, T TOMMY MD Unavailable Unavailable OBEN, T TOMMY MD Unavailable Unavailable OBEN, T TOMMY MD Unavailable Unavailable OBEN, T TOMMY MD Unavailable Unavailable OBEN, T TOMMY MD Unavailable Unavailable OBEN, T TOMMY MD Unavailable Unavailable OBEN, T TOMMY MD Unavailable Unavailable OBEN, T TOMMY MD Unavailable Unavailable OBEN, T TOMMY MD Unavailable Unavailable OBEN, T TOMMY MD Unavailable Unavailable OBEN, T TOMMY MD Unavailable Unavailable OBEN, T TOMMY MD Unavailable Unavailable OBEN, T TOMMY MD Unavailable Unavailable OBEN, T TOMMY MD Unavailable Unavailable OBEN, T TOMMY MD Unavailable Unavailable OBEN, T TOMMY MD Unavailable Unavailable OBEN, T TOMMY MD Unavailable Unavailable OBEN, T TOMMY MD Unavailable Unavailable OBEN, T TOMMY MD Unavailable Unavailable OBEN, T TOMMY MD Unavailable Unavailable OBEN, T TOMMY MD Unavailable Unavailable OBEN, T TOMMY MD Unavailable Unavailable OBEN, T TOMMY MD Unavailable Unavailable OBEN, T TOMMY MD Unavailable Unavailable OBEN, T TOMMY MD Unavailable Unavailable OBEN, T TOMMY MD Unavailable Unavailable OBEN, T TOMMY MD Unavailable Unavailable OBEN, T TOMMY MD Unavailable Unavailable OBEN, T TOMMY MD Unavailable Unavailable OBEN, T TOMMY MD Unavailable Unavailable OBEN, T TOMMY MD Unavailable Unavailable OBEN, T TOMMY MD Unavailable Unavailable OBEN, T TOMMY MD Unavailable Unavailable OBEN, T TOMMY MD Unavailable Unavailable OBEN, T TOMMY MD Unavailable Unavailable OBEN, T TOMMY MD Unavailable Unavailable OBEN, T TOMMY MD Unavailable Unavailable OBEN, T TOMMY MD Unavailable Unavailable OBEN, T TOMMY MD Unavailable Unavailable OBEN, T TOMMY MD Unavailable Unavailable OBEN, T TOMMY MD Unavailable Unavailable OBEN, T TOMMY MD Unavailable Unavailable OBEN, T TOMMY MD Unavailable Unavailable Re-disclosure Warning The records that you are about to access may contain information from federally-assisted alcohol or drug abuse programs. If such information is present, then the following federally mandated warning applies: This information has been disclosed to you from records protected by federal confidentiality rules (42 CFR part 2). The federal rules prohibit you from making any further disclosure of this information unless further disclosure is expressly permitted by the written consent of the person to whom it pertains or as otherwise permitted by 42 CFR part 2. A general authorization for the release of medical or other information is NOT sufficient for this purpose. The Federal rules restrict any use of the information to criminally investigate or prosecute any alcohol or drug abuse patient.The records that you are about to access may contain highly sensitive health information, the redisclosure of which is protected by Article 27-F of the [facility] Public Health law. If you continue you may have access to information: Regarding HIV / AIDS; Provided by facilities licensed or operated by the [facility] Office of Mental Health; or Provided by the [facility] Office for People With Developmental Disabilities. If such information is present, then the following [facility] mandated warning applies: This information has been disclosed to you from confidential records which are protected by state law. State law prohibits you from making any further disclosure of this information without the specific written consent of the person to whom it pertains, or as otherwise permitted by law. Any unauthorized further disclosure in violation of state law may result in a fine or snf sentence or both. A general authorization for the release of medical or other information is NOT sufficient authorization for further disc losure. Allergies and Adverse Reactions Type Description Substance Reaction Status Data Source(s ) No Known Drug Allergies No Known Drug Allergies [facility] No Known Environmental Allergies No Known Environmental Al lergies [facility] No Known Food Allergies No Known Food Allergies [facility] Encounters Encounter Providers Location Date Indications Data Source(s ) Outpatient Attender: TOMMY CANO MDConsultant: PCP NO 08/09/2021 09:00:00 AM EDT - 08/09/2021 12:31:[address] [facility] Patient discharged. Outpatient Attender: TOMMY CANO MDConsultant: PCP NO 07/31/2021 12:17:26 PM EDT - 08/01/20[facility]07[facility] [facility] Emergency Attender: Chadd Oropeza MD 07/23/2021 03:38:00 PM EDT - 07/23/2021 05:05:00 PM EDT [facility] Patient discharged. Outpatient Attender: TOMMY CANO MD 06/26/20 01:01:00 PM EDT - 06/26/2021 01:01:00 PM EDT [facility] Outpatient Attender: TOMMY CANO MD [facility] 05/17/2021 03:30:0 0 PM EDT [facility] ([facility]) Outpatient Attender: TOMMY CANO MD 05/17/20 03:20:00 PM EDT - 05/17/2021 03:20:00 PM EDT [facility] Outpatient Attender: Dahlia Ivan/[place] 03/12/2021 09:00:00 AM EDT [facility] ([facility], ) Outpatient Attender: Dahlia Ivan/[place]/[facility]/[place] 01/23/2021 03:30:00 PM EDT [facility] ([facility]) Outpatient Attender: Dahlia Ivan/[place]/Daniel/[place]l 01/09/2021 10:00:00 AM EDT [facility] ([facility]) Medications Medication Brand Name Start Date Product Form Dose Route Admi nistrative Instructions Pharmacy Instructions Status Indications Reaction Description Data Source(s) 60 mcg (15 mcg x 4)/0.5 mL 08/01/2021 12:00:00 AM EDT suspen samantha 0 INJECT DIRECTED INJECT DIRECTED SOLD: 08/01/2021 [facility] 120 ACTUAT Fluticasone propionate 0.115 MG/ACTUAT / salmeterol 0.021 MG/ACTUAT Metered Dose Inhaler [Advair] Advair A 01/23/2021 12:00:00 AM EDT RESPIRATORY active [facility] ( [facility], ) 200 ACTUAT Albuterol 0.09 MG/ACTUAT Metered Dose Inhal er [Ventolin] Ventolin [facility] 01/23/2021 12:00:00 AM EDT RESPIRATORY active [facility] ([facility], ) Aerochamber Plus Krish-Vu 01/23/2021 12:00:00 AM EDT active [facility] ([facility], ) Insurance Providers Payer name Policy type / Coverage type Policy ID Covered green party ID Covered green party's relationship to zamarripa Policy Zamarripa Plan [facility] [id number] 18 [id number] [facility] [place] [id number] 18 [id number] [facility] [id number] 18 [id number] [facility] ACTIVE DUTY [id number] SP [id number] Problems, Conditions, and Diagnoses Code Display Name Description Problem Type Effective Dates Data Source(s) V99683 Personal history of urinary (tract) infe ctions Personal history of urinary (tract) infections Diagnosis 08/09/2021 09:00:00 AM [facility] Z8742 Personal history of other diseases of th e female genital tract Personal history of other diseases of the female genital tract Diagnosis 08/09/2021 09:00:00 AM [facility] O75611 Personal history of other diseases of ur inary system Personal history of other diseases of urinary system Diagnosis 08/09/2021 09:00:00 AM [facility] C01990 Nicotine dependence, unspecified, uncomp licated Nicotine dependence, unspecified, uncomplicated Diagnosis 08/09/2021 09:00:00 AM [facility] N393 Stress incontinence (female) (male) Stress incon tinence (female) (male) Diagnosis 08/09/2021 09:00:00 AM [facility] R67540 Encounter for other preprocedural examin ation Encounter for other preprocedural examination Diagnosis 08/01/2021 11:25:00 AM [facility] N96820 Nicotine dependence, other tobacco produ ct, uncomplicated Nicotine dependence, other tobacco product, uncomplicated Diagnosis 07/23 03:38:00 PM [facility] C38898 Unspecified asthma, uncomplicated Unspecified as thma, uncomplicated Diagnosis 07/23/2021 03:38:00 PM [facility] K047 Periapical abscess without sinus Periapical absc ess without sinus Diagnosis 07/23/2021 03:38:00 PM EDT [facility] O24369 Cellulitis of umbilicus Cellulitis of umbilicus Diagno sis 07/23/2021 03:38:00 PM EDT [facility] R21 Rash and other nonspecific skin eruption Rash and other nonspecific skin eruption Diagnosis 07/23/2021 03:38:00 PM EDT [facility] Z712 Person consulting for explanation of exa mination or test findings Person consulting for explanation of examination or test findings Diagnosis 05/17/2021 03:20:00 PM EDT [facility] V98756 Nicotine dependence, cigarettes, uncompl icated Nicotine dependence, cigarettes, uncomplicated Diagnosis 05/17/2021 03:20:00 PM EDT [facility] N390 Urinary tract infection, site not specif ied Urinary tract infection, site not specified Diagnosis 05/17/2021 03:20:00 PM EDT [facility] Z87.440 History of chronic urinary tract infecti on History of chronic urinary tract infection Problem 06/26/2021 12:00:00 AM EDT [facility] ([facility]) N39.3 Female stress incontinence Female stress incontinence Problem 06/26/2021 12:00:00 AM EDT [facility] ([facility]) J45.30 Mild persistent asthma Mild persistent asthma Problem 01/23/2021 12:00:00 AM [facility] Surgeries/Procedures Procedure Description Date Indications Data Source(s) OFFICE OUTPATIENT NEW 30 MINUTES 05/17/2021 12:00:00 A M EDT [facility] ([facility]) OFFICE OUTPATIENT NEW 20 MINUTES 05/17/2021 12:00:00 A M EDT [facility] ([facility]) Spirometry 03/12/2021 12:00:00 AM EDT [facility] ([facility], ) OFFICE OUTPATIENT VISIT 15 MINUTES 03/12/2021 12:00:00 AM EDT [facility] ([facility]) Bronchospasm Evaluation 01/17/2021 12:00:00 AM EDT [facility] ([facility], ) Plethysmography Determination Lung Volumes & Per Airway Resi st 01/17/2021 12:00:00 AM EDT [facility] ([facility], ) DIFFUSING CAPACITY 01/17/2021 12:00:00 AM EDT [facility] ([facility], ) Spirometry 01/09/2021 12:00:00 AM EDT M [facility] ([facility], ) Results ID Date Data Source [id number] 08/09/2021 01:32:00 [place] [address] OPERATIVE SUMMARYNAME: KIKE Tijerina DATE OF : 2000ATTENDING PHYS: TOMMY CANO MD DATE: 08/09/21 MR#: [id number] OF PROCEDURE: 08/09/2021REOPERATIVE DIAGNOSIS: Recurrent UTIs.POST-OPERATIVE DIAGNOSIS: Recurrent UTIs.PROCEDURE PERFORMED: Cystoscopy with urethral dilatation.ATTENDING SURGEON: Dr. Tommy Cano.PHYSICIAN TEXTILE MACHINE MAINTENANCE MECHANIC: ODALYS Ortiz.ANESTHESIA: Monitored anesthesia care.ANESTHESIOLOGIST: Kushal Aguilar CRNA.ESTIMATED BLOOD LOSS: Minimal.COMPLICATIONS: None.DRAINS: None.DISPOSITION: To the Ambulatory Surgical Unit.CONDITION: Stable.INTRAOPERTATIVE FINDINGS:Dense narrow urethral stricture, otherwise unremarkable.INDICATIONS FOR PROCEDURE:Stella Fair is a 21-year-old female previously seen and evaluated with recurrent urinary tractinfections. She had had a renal and bladder sonogram which showed no significant urinary tractpathologies. After counseling, she had opted for cystoscopy with urethral dilatation.DETAILS OF PROCEDURE:After a detailed informed consent was obtained from the patient, she was wheeled into theoperating room and installed on the operating table in the supine position. Adequate monitoredanesthesia care was then administered, and she was placed in the lithotomy position. The perineal [address] [place] [address] OPERATIVE SUMMARYNAME: KIKE Tijerina DATE OF : 2000ATTENDING PHYS: TOMMY CANO MD DATE: 08/09/21 MR#: [id number] vaginal areas were then properly cleaned, prepped, and draped in the usual sterile fashion.After the proper time-out procedures were carried out, the perineum was examined and the urethraidentified. The urethra was then serially dilated from 18 Hungarian to a maximum of 30 Hungarian.Cystoscopy was then performed and no intravesical pathologies were noted. The bladder was thenemptied and the cystoscope was withdrawn. With the operation at this point now completed, theanesthesia was reversed. The patient was transferred onto a stretcher, on which she was transferredto the Ambulatory Surgical Unit in stable condition. The operation was well-tolerated, and therewere no complications.Copies of this report to [facility].DD: TOMMY CANO MD 08/09/21 12:04DT: KAYLYN 08/09/21 13:26DS: TOMMY CANO MD 08/13/21 08:30 2 Name Value Range Interpretation Code Description Data Carolyn rce(s) Supporting Document(s) ID Date Data Source [id number] 08/09/2021 10:07:00 AM EDT [facility] Name Value Range Interpretation Code Description Data Carolyn rce(s) Supporting Document(s) HCG SERUM QUAL NEGATIVE NORMAL: NEGATIVE [facility] HCG SERUM QL REENTER NEGATIVE NORMAL: NEGATIVE [facility] { KIT LOT # [id number] ){ KIT EXP DATE 11/25/22 ){ PROCEDURAL CONTROL VALID ) ID Date Data Source [id number] 07/23/2021 03:38:00 PM EDT [facility] 1 OrderSheet [facility] Emergency Department [address] [place] [address] Phone #: ext- [phone] 07/23/2021 15:32 Patient: STELLA FAIR Sex: F : 2000 Age: 21yWEIGHT:65.7 kg HEIGHT:64 inches BMI:24.9ALLERGIES: No Known Drug AllergyCHIEF COMPLAINT: skin rash, lesion, tender areaDIAGNOSIS: Cellulitis of skin, Dental abscessLAB ORDERSOrder Description Priority Entered Acknowledged InitialedDIAGNOSTIC STUDY ORDERSOrder Description Priority Entered Acknowledged InitialedMEDICATION/IV/DRIP/FLUID ORDERSOrder Description Priority Entered Acknowledged InitialedRocephin IM 1000 16:31 07/23/2021 Ack'd: 16:37 16:48 mg Feli (NOW x1) Gildardo MORROW; Jaqueline Edmond R.N., R.N.GENERAL ORDERSOrder Description Priority Entered Acknowledged Initialed[Electronically signed by Jaqueline Edmond R.N. (17:08 07/23/2021)][Electronically signed by Gildardo Wilson (20:00 07/23/2021)][Electronically locked by Jaqueline Edmond R.N. (:07/23/2021)] Name Value Range Interpretation Code Description Data Carolyn rce(s) Supporting Document(s) ID Date Data Source [id number] 07/23/2021 03:38:00 PM EDT [facility] 1 Medication Reconciliation Report [facility] Emergency Department [address] [place] [address] Phone #: ext- [phone] 07/23/2021 15:32 Patient: STELLA FAIR Sex: F : 2000 Age: 21yWeight: 65.7 kgHeight/Length: 64 in.BMI: 24.9ALLERGIES: No Known Drug AllergyThe patient's Home Medications are listed below:CONTINUE TAKING THE FOLLOWING MEDICATIONS: buPROPion HCl Oral 15 mg Gabapentin Oral, unknown dose Venlafaxine HCl ER Oral 225 mgThe source(s) of the original Home Medication information:Not obtained.The following Medications were given to the patient in the Emergency Department:Rocephin [IM] IM 1 gm with 1% Lidocaine 2.1 mL, administered: 16:48 07/23/2021The following Medications were prescribed to the patient:cephalexin 500 mg capsule Take 1 capsule three times a day as directed for 10 days -- for cellulitis.Dispense 30 capsule. Refills: 0. Substi tution permitted.Pharmacy - [facility] - [address] [facility] ; [place] [address]. .ibuprofen 800 mg tablet Take 1 tablet every eight hours as needed for pain for 5 days -- Dispense 15tablet. Refills: 0. Substitution permitted.Ph[facility]acy - [facility] - [address] [facility] ; [place] [address]. . -- ODALYS Hernandez Name Value Range Interpretation Code Description Data Carolyn rce(s) Supporting Document(s) ID Date Data Source [id number] 07/23/2021 03:38:00 PM EDT [place] [address] Medication Administration Record [facility] Emergency Department [address] [place] [address] Phone #: ext- [phone] 07/23/2021 15:32 Patient: STELLA FAIR Sex: F : 2000 Age: 21yWeight: 65.7 kgHeight/Length: 64 inBMI: 24.9ALLERGIES: No Known Drug Allergy Date/Time Medication Administered Medication OrderedGiven ROCEPHIN [IM] (CEFTRIAXONE Rocephin IM 1000 mg (NOW x1)16:48 07/23/2021 SODIUM)Jaqueline Edmond R.N. Dose: 1 gm IM With: 1% LIDOCAINE 2.1 mL Name Value Range Interpretation Code Description Data Carolyn rce(s) Supporting Document(s) ID Date Data Source [id number] 07/23/2021 03:38:00 PM EDT [place] [address] General Instructions [facility] Emergency Department [address] [place] [address] Phone #: ext- [phone] 07/23/2021 15:32 Patient: STELLA FAIR Sex: F : 2000 Age: 21yCellulitis (umbilicus region).Periapical dental abscess. No sinus tract or Micky's angina.INSTRUCTIONSNo strenuous activity until better. Rest at home today.Do not smoke. No alcohol.(remove all skin piercings until symptoms resolve).Warnings: Further evaluation is necessary. It is very important to follow up with a healthcare provider.GENERAL WARNINGS: Return or contact your physician immediately if your condition worsens orchanges unexpectedly, if not improving as expected, or if other problems arise. worsening redness,discharge from umbilicus region.Your Current Medications: Your current home medications have been reviewed.CONTINUE TAKING THE FOLLOWING MEDICATIONS:buPROPion HCl Oral : 15 mg.Gabapentin Oral : unknown dose.Venlafaxine HCl ER Oral : 225 mg.Prescription Medications:cephalexin 500 mg capsule Take 1 capsule three times a day as directed for 10 days -- for cellulitis.Dispense 30 capsule. Refills: 0. Substitution permitted.Pharmacy - [facility] [address] [facility] ; [place] [address]. .ibuprofen 800 mg tablet Take 1 tablet every eight hours as needed for pain for 5 days -- Dispense 15tablet. Refills: 0. Substitution permitted.Pharmacy - [facility] - [address] [facility] ; [place] [address]. .Follow-up:Follow up with your healthcare provider in three even if well. Call for the next available appointment.Reason for referral: evaluation. S donnay of care provided to patient via paper.Understanding of the discharge instructions verbalized by patient. Expected course of illness, dischargeinstructions, activity level, prescriptions x2, follow-up appointment and risks and benefits of treatmentreviewed with patient and understanding verbalized. Agrees to plan of care. 2 General Instructions [facility] Emergency Department [address] [place] [address] Phone #: ext- [phone] 07/23/2021 15:32 Patient: STELLA FAIR Sex: F : 2000 Age: 21y ADDITIONAL INFORMATIONCellulitisCellulitis is an infection of the deep layers of skin. A break in the skin, such as a cut or scratch, can letbacteria under the skin. If the bacteria get to deep layers of the skin, it can be serious. If not treated,cellulitis can get into the bloodstream and lymph nodes. The infection can then spread throughout thebody. This causes serious illness.Cellulitis causes the affected skin to become red, swollen, warm, and sore. The reddened areas havea visible border. An open sore may leak fluid (pus). You may have a fever, chills, and pain.Cellulitis is treated with antibiotics taken for 7 to 10 days. An open sore may be cleaned and coveredwith cool wet gauze. Symptoms should get better 1 to 2 days after treatment is started. Make sure totake all the antibiotics for the full number of days until they are gone. Keep taking the medicine even ifyour symptoms go away.Home careFollow these tips: Limit the use of the part of your body with cellulitis. If the infection is on your leg, keep your leg raised while sitting. This helps reduce swelling. Take all of the antibiotic medicine exa ctly as directed until it is gone. Don't miss any doses, especially during the first 7 days. Don't stop taking the medicine when your symptoms get better. Keep the affected area clean and dry. Wash your hands with soap and clean, running water before and after touching your skin. Anyone else who touches your skin should also wash his or her hands. Don't share towels.Follow- up careFollow up with your healthcare provider, or as advised. If your infection doesn't go away on the firstantibiotic, your healthcare provider will prescribe a different one.When to seek medical adviceCall your healthcare provider right away if any of these occur: Red areas that spread 3 General Instructions [facility] Emergency Department [address] [place] [address] Phone #: ext- [phone] 07/23/2021 15:32 Patient: STELLA FAIR Sex: F : 2000 Age: 21y Swelling or pain that gets worse Fluid leaking from the skin (pus) Fever higher of 100.4 F (38.0 C) or higher after 2 days on antibiotics [id number] [employer]. [address] [place] [address]. All rights reserved. This information is not intended as asubstitute for professional medical care. Always follow your healthcare professional's instructions.Dental AbscessA dental abscess is an infection of the tooth socket. It often starts with a crack or cavity in the tooth. Apocket of pus forms between the tooth and the bone. The infection causes pain and swelling of thegum, cheek, or jaw. The pain is often made worse by drinking hot or cold fluids, or biting on hardfoods. Pain may be felt in the facial sinus or in the ear. A severe infection can cause problems withswallowing and breathing.Causes Cavities Trauma Previous dental workSymptoms Pain Swelling around the tooth or face and cheek Redness Bad breath Bad taste in the mouth FeverYou will be started on an antibiotic. But, final treatment requires draining the pus. This can be done byremoving the tooth or getting a root canal. An oral surgeon typically removes diseased teeth. Anendodontist does a root canal. This involves drilling an opening in the tooth to get to access thecanals in the root. Once these are reached, the pus can be drained. Then the canals are cleaned andshaped before filling them with a special material called kd percha. After the infection has healed, acrown is placed over the tooth.Home care 4 General Instructions [facility] Emergency Department [address] [place] [address] Phone #: ext- [phone] 07/23/2021 15:32 Patient: STELLA FAIR Sex: F : 2000 Age: 21yThe following guidelines will help you care for your abscess at home: Don't have hot or cold foods and liquids. Your tooth may be sensitive to temperature changes. If your tooth is chipped or cracked, or if there is a large open cavity, apply oil of cloves directly to the tooth to reduce pain. Oil of cloves is sold conb-ewv-bmgrmzj in pharmacies. Some pharmacies carry an rufw-ymv-aticmhr "toothache kit." This contains oil of cloves and a paste, which can be applied over the exposed tooth to decrease sensitivity. Apply an ice pack (ice cubes in a plastic bag, wrapped in a towel) over the injured area for 10 to 20 minutes every 1 to 2 hours the first day for pain relief. Continue this 3 to 4 times a day until the pain and swelling goes away. To make an ice pack, put ice cubes in a plastic bag that seals at the top. Wrap the bag in a clean, thin towel or cloth. Never put ice or an ice pack directly on the skin. You can take acetaminophen or ibuprofen for pain, unless you were given a different pain medicine to use. If you have chronic liver or kidney disease, have ever had a stomach ulcer or gastrointestinal bleeding, or are taking blood-thinning medicines, talk with your healthcare provider before using these medicines. An antibiotic will be prescribed. Take it as directed until completed, even if you are feeling better sooner.Fol low-up careFollow up as advised with an search director, or oral surgeon. Even though your pain may improve withthe treatment given today, only a dentist, search director, or oral surgeon can provide full treatment forthis problem. If a culture was done, you will be told if the treatment needs to be changed. You can call in as directed for the results. If X-rays were taken, they will be reviewed by a specialist. You will be given the results, especially if they affect treatment.Call [phone] if any of these occur: Trouble breathing or swallowing, or wheezing Hoarse voice or trouble speaking Confusion Extreme drowsiness or trouble awakening 5 General Instructions [facility] Emergency Department [address] [place] [address] Phone #: ext- [phone] 07/23/2021 15:32 Patient: STELLA FAIR Sex: F : 2000 Age: 21y Fainting or loss of consciousness Rapid heart rateWhen to seek medical adviceCall your healthcare provider right away if any of these occur: Swollen or red face or eyelid Pain gets worse or spreads to the neck You have a fever of 100.4F (38C) or higher, or as directed by your healthcare provider Unusual drowsiness, a headache or stiff neck, or weakness Pus drains from the gum or tooth You can't open your mouth wide [id number] [employer]. [address] [place] [address]. All rights reserved. This information is not intended as asubstitute for professional medical care. Always follow your healthcare professional's instructions.Dental Pain 6 General Instructions [facility] Emergency Department [address] [place] [address] Phone #: ext- [phone] 07/23/2021 15:32 Patient: STELLA FAIR Sex: F : 2000 Age: 21yA crack or cavity in a tooth can cause tooth pain. This is because the crack or cavity exposes thesensitive inner area of the tooth. An infection in the gum or the tooth's root can cause pain andswelling. The pain is often made worse when you have a hot or cold drink. It can also be worse whenyou bite on hard foods. Pain may spread from the tooth to your ear, or to the part of the jaw on thesame side.Home careFollow these tips when caring for yourself at home: Don't have hot and cold foods and drinks. Your tooth may be sensitive to changes in temperature. Use toothpaste made for sensitive teeth. [place] gently up and down instead of sideways. Brushing sideways can wear away root surfaces if they are exposed. If your tooth is chipped or cracked, see a dentist right away. For short-term pain relief, put clove oil right on the tooth. You can buy clove oil at pharmacies. Some pharmacies carry an xsjk-gjy-jymefhs toothache kit. This has a paste you can put on the exposed tooth to make it less sensitive. 7 General Instructions [facility] Emergency Department [address] [place] [address] Phone #: ext- [phone] 07/23/2021 15:32 Patient: STELLA FAIR Sex: F : 2000 Age: 21y Use a cold pack. Put a cold pack on your jaw over the sore area to help reduce pain. Ask your healthcare provider about using savm-fky-tmfkrqa medicine for pain. You may use this unless your provider prescribed another medicine. If you have long-term (chronic) liver or kidney disease, talk with your provider before using acetaminophen or ibuprofen. Also talk with your provider if you've had a stomach ulcer or GI (gastrointestinal) bleeding. Be aware of infection. If you have signs of an infection, you will be given an antibiotic. Take it as directed.Follow- up careFollow up with your dentist, or as advised. Your pain may go away with the treatment given today. Butonly a dentist can fully check and treat the cause of your pain. This will keep the pain from comingback.Call 911Call 911 if any of these occur: Abnormal drowsiness Headache or stiff neck Weakness or fainting Trouble swallowing or breathingWhen to get medical adviceCall your healthcare provider right away if any of these occur: Your face gets swollen or red Pain gets worse or spreads to your neck Fever of 100.4F (38.0C) or higher, or as directed by your provider Pus drains from the tooth [id number] [employer]. [address] [place] [address]. All rights reserved. This information is not intended as asubstitute for professional medical care. Always follow your healthcare professional's instructions. You have been given the following additional information: Cellulitis Tooth Abscess Dental Pain 8 General Instructions [facility] Emergency Department [address] [place] [address] Phone #: ext- [phone] 07/23/2021 15:32 Patient: STELLA FAIR Sex: F : 2000 Age: 21yNo strenuous activity until better. Rest at home today.(Electronically signed by ODALYS Hernandez 07/23/2021 20:00) Name Value Range Interpretation Code Description Data Carolyn rce(s) Supporting Document(s) ID Date Data Source [id number] 07/23/2021 03:38:00 PM EDT [facility] 1 Clinical Report - Nurses [facility] Emergency Department [address] [place] [address] Phone #: ext- [phone] 07/23/2021 15:32 Patient: STELLA FAIR Sex: F : 2000 Age: 21yTRIAGEArrived by private vehicle. Historian: patient.Acuity: LEVEL 4.Chief Complaint: TENDER AREA.Alert. No acute distress.Reported as (umbilicus). ( Patient reports purulent drainage from belly button ring today. Took out jewelryPTA. States she also has dental pain "thinks something is wrong with her root canal". Was prescribedamoxicillin by cooker soda for possible tooth infection this morning but has not taken it yet. Also reportspain to left nipple piercing.). ( feels "feverish", denies documented fever).SEPSIS SCREEN: SIRS SCREEN NEGATIVE: heart rate greater than 90. SEPSIS SCREEN NEGATIVE.No suspected or confirmed signs of infection present. --15:44 07/23/21 Anita Willoughby R.N.15:38 07/23/21. BP: 125/80. HR: 92. RR: 15. O2 saturation: 100%. Temp: 99.1 F. Pain level now 5/10.--15:44 07/23/21 Anita Willoughby R.N.Weight: 65.7 kg. Height/Length: 64 inches. BMI: 24.9. --15:42 07/23/21 Anita Willoguhby R.N.MedicationsVenlafaxine HCl ER Oral 225 mg. --15:41 07/23/21 Anita Willoughby R.N. buPROPion HCl Oral 15 mg. --15:41 07/23/21 Anita Willoughby R.N. Gabapentin Oral (unknown dose). --15:42 07/23/21 Anita Willoughby R.N.AllergiesNo Known Drug Allergy. --15:41 07/23/21 Anita Willoughby R.N.PROBLEMS:Depression.Asthma. --15:42 07/23/21 Anita Willoughby R.N.ADDITIONAL SURGERIES:Chester teeth. --15:42 07/23/21 Anita Willoughby R.N.HistoryPAST MEDICAL HX: Immunizations: up-to-date. Last normal menstrual period- Jul 15.SOCIAL HX: Smoker- current status unknown (electronic cigarrettes). Regular alcohol use. No drug use.She was offered HIV testing but declined and hepatitis C testing but declined. She has not traveledoutside the [place] 2 Clinical Report - Nurses [facility] Emergency Department [address] [place] [address] Phone #: ext- [phone] 07/23/2021 15:32 Patient: STELLA FAIR Sex: F : 2000 Age: 21y Infectious disease exposure: The patient was not exposed to C-diff, MRSA or Coronavirus. SELF HARM ASSESSMENT: Self harm assessment was performed. The patient answered "no" to the question(s) "Have you recently felt down, depressed, or hopeless?", "Do you have thoughts of harming or killing yourself?", "Do you have a plan for harming or killing yourself?" and "Have you recently had thoughts about harming or killing others?". ABUSE ASSESSMENT: No report of abuse. NUTRITIONAL RISK ASSESSMENT: The nutritional risk assessment revealed no deficiencies. FUNCTIONAL ASSESSMENT: Functional assessment: no impairments noted. LEARNING NEEDS ASSESSMENT: The learning needs assessment revealed no barriers. FALL RISK ASSESSMENT: Fall risk assessment completed. No risk factors identified. SKIN INTEGRITY ASSESSMENT: Skin integrity risk assessment completed. No skin integrity risk identified. --15:44 07/23/21 Anita Willoughby R.N. Interventions Identification band on patient. To treatment room. --15:44 07/23/21 Anita Willoughby R.N.PHYSICAL ASSESSMENTAmbulatory to room.GENERAL / NEURO / PSYCH: Alert. The patient does not appear to be in acute distress. Oriented X 4.HEENT: Pupils equal, round and reactive to light. ( pt is fatigued). Mucous membranes are pink.RESPIRATORY: Respirations not labored. Breath sounds within normal limits.CVS: Capillary refill less than 2 seconds. Pulses within normal limits.GI / : Abdominal tenderness in the lower abdomen (near umbilicus, slight redness). ( thinks her bellyring may be infected, she feels fatigued, pt thinks left breast piercing may also be infected).SKIN: Skin is intact, warm and dry. No skin rash. --15:58 07/23/21 Jaqueline Edmond R.N. NURSING PROGRESS NOTES15:44 07/23/21. Patient gowned. Reassurance given. Two patient identifiers checked. Call lightplaced in reach. Side rails up x 1. Bed placed in lowest position. Brakes of bed on. Patient ready forevaluation- ED physician and PA notified. --15:44 07/23/21 Anita Willoughby R.N. 16:48 07/23/2021 Rocephin (cefTRIAXone Sodium) IM 1 gm with 1% Lidocaine 2.1mL. Given in the right gluteus macy. Allergies verified and confirmed 5 rights. Information reviewed with patient including reason for taking this medication, signs of allergic reaction and precautions. Verbalizes understanding. --16:48 07/23/21 Jaqueline Edmond R.N.DISPOSITION / DISCHARGE 3 Clinical Report - Nurses [facility] Emergency Department [address] [place] [address] Phone #: ext- [phone] 07/23/2021 15:32 Patient: STELLA FAIR Sex: F : 2000 Age: 21y 16:43 07/23/21. BP: 107/71. HR: 103. RR: 16. O2 saturation: 100%. Temp: 99.3 F. Pain level now 10. --16:43 07/23/21 [facility] Deepa Manzano 17:05 07/23/21. Departure time: late entry - 17:05 07/23/2021. [place] Coma Scale: 15- eyes open- spontaneous (4); best verbal response- oriented (5); best motor response- obeys commands (6). Condition at departure: improved and stable. No learning barriers present. Discharge instructions provided and reviewed with the patient. Reviewed warnings. Reviewed medication(s) side effects, precautions, dosing and course information. Prescription(s) sent electronically to pharmacy ( cephalexin, ibuprofen). Reviewed referral to a primary care physician for followup. Work note given. Patient verbalized understanding. Written instructions provided in Malawian. The patient was discharged by the physician sales assistant displays. She was discharged home and unaccompanied at time of discharge. She left ambulatory and via private vehicle. Patient driving. --17:08 07/23/21 Jaqueline Edmond R.N.Locked/Released at 07/23/2021 17:08 by Jaqueline Edmond R.N. Name Value Range Interpretation Code Description Data Carolyn rce(s) Supporting Document(s) ID Date Data Source [id number] 07/23/2021 03:38:00 PM EDT [facility] 1 Clinical Report - Physicians/Mid Levels [facility] Emergency Department [address] [place] [address] Phone #: ext- [phone] 07/23/2021 15:32 Patient: STELLA FAIR Sex: F : 2000 Age: 21y Time Seen: 16:30 07/23/2021. Arrived- By private vehicle. Historian- patient. Disposition decision: 16:38 07/23/2021.HISTORY OF PRESENT ILLNESS Chief Complaint: SKIN RASH, LESION and TENDER AREA. This started today Redness around and yellowish drainage from belly button piercing today, L breast soreness where nipple piercing is, and L upper incisor pain x several days, reports hx of root canal last yr to that tooth, seen on [place] today for tooth pain and given amoxicillin. ? fever at home. It is described as itchy and painful. Not burning. It has been located on the left breast (umbilicus). No cause has been identified. No recent medication or insect bite. Was not recently exposed to poison aj or poison oak.REVIEW OF SYSTEMSLast normal menstrual period- 15 Jul 2021. She has had fever. No chills, sore throat, cough, difficultybreathing or hoarseness. No lump in throat, enlarged lymph nodes, headache, eye irritation or chest pain.No abdominal pain, nausea, diarrhea, difficulty with urination or genital lesions. No joint pain, vomiting orvaginal discharge.PAST HISTORYSee nurses notes. Tetanus immunization status is up-to-date. Problems: Depression. Asthma. Additional Surgeries: [place] teeth. Medications: Gabapentin Oral (unknown dose). buPROPion HCl Oral 15 mg. Venlafaxine HCl ER Oral 225 mg. Allergies: No Known Drug Allergy.SOCIAL HISTORYSmoker- current status unknown. Alcohol use. No drug use. No recent travel.ADDITIONAL NOTESThe nursing notes have been reviewed with agreement regarding the chief complaint, HPI, ROS, PMH andpatient medications and allergies. 2 Clinical Report - Physicians/Mid Levels [facility] Emergency Department [address] [place] [address] Phone #: ext- [phone] 07/23/2021 15:32 Patient: STELLA FAIR Sex: F : 2000 Age: 21yPHYSICAL EXAMVital Signs: 07/23/2021 15:38 BP: 125/80. MAP: 95. HR: 92. RR: 15. O2 saturation: 100%. Temp: 99.1 F.Have been reviewed as normal and appear to be correct. Blood pressure normal. Mean arterialpressure- normal. Heart rate normal. Respiratory rate normal. Temperature normal. Oxygensaturation normal.Appearance: Alert. Oriented X3. No acute distress.Eyes: Pupils equal, round and reactive to light. Conjunctivae and eyelids normal.ENT: Ears normal. Nose normal. Mouth normal on inspection. Mild dental tenderness of a single toothwith gingival tenderness (upper left medial incisor). No gingival induration, swelling or fluctuance. Pharynxnormal.Neck: Neck supple.CVS: Normal heart rate and rhythm. Heart sounds normal.Respiratory: No respiratory distress. Breath sounds normal. Chest nontender.Breast Exam: Senior Investment Manager present (Ora CARRIZALES).Left Breast: No mass present on exam. No tenderness on exam. No adenopathy noted. Normalnipple. No erythema noted. No skin rash, ecchymosis, laceration, abrasion present or burn present. Nobite wound. No swelling noted, induration noted, skin lesion present, nipple discharge or areolaabnormality.Abdomen: Nontender. No organomegaly.Skin: Skin warm and dry. Normal skin color. Normal skin turgor. No tender indurated area. Cellulitis.Mild, well-demarcated, erythematous, macular skin rash on the abdomen- superior umbilicus area. Therash is macular and erythematous. There is warmth and tenderness. No swelling or abscess.Extremities: Normal external inspection. Extremities nontender.Neuro: Oriented X 3. No motor deficit. No sensory deficit.PROGRESS AND PROCEDURESDisposition: Discharged home in good and improved condition.Discharge decision based on the following: patient's condition is improved; patient is ambulatory; patient isactive; patient's pain is controlled; patient's exam is improved; improving condition on repeat evaluation;social support is adequate; transportation is available; follow-up is available; clinical impression isconsistent with outpatient treatment.CLINICAL IMPRESSION Cellulitis (umbilicus region). Periapical dental abscess. No sinus tract or Micky's angina. INSTRUCTIONS No strenuous activity until better. Rest at home today. Do not smoke. No alcohol. (remove all skin piercings until symptoms resolve). 3 Clinical Report - Physicians/Mid Levels [facility] Emergency Department [address] [place] [address] Phone #: ext- [phone] 07/23/2021 15:32 [id number] Sex: F : 2000 Age: 21y Warnings: Further evaluation is necessary. It is very important to follow up with a healthcare provider. GENERAL WARNINGS: Return or contact your physician immediately if your condition worsens or changes unexpectedly, if not improving as expected, or if other problems arise. worsening redness, discharge from umbilicus region. Your Current Medications: Your current home medications have been reviewed. CONTINUE TAKING THE FOLLOWING MEDICATIONS: buPROPion HCl Oral : 15 mg. Gabapentin Oral : unknown dose. Venlafaxine HCl ER Oral : 225 mg. Prescription Medications: cephalexin 500 mg capsule Take 1 capsule three times a day as directed for 10 days -- for cellulitis. Dispense 30 capsule. Refills: 0. Substitution permitted. Pharmacy - [facility] [employer] [id number] [facility] ; [place] [address]. . ibuprofen 800 mg tablet Take 1 tablet every eight hours as needed for pain for 5 days -- Dispense 15 tablet. Refills: 0. Substitution permitted. Pharmacy - [facility] [employer] [id number] [facility] ; [place] [address]. . Follow-up: Follow up with your healthcare provider in three even if well. Call for the next available appointment. Reason for referral: evaluation. Summary of care provided to patient via paper. Und erstanding of the discharge instructions verbalized by patient. Expected course of illness, discharge instructions, activity level, prescriptions x2, follow-up appointment and risks and benefits of treatment reviewed with patient and understanding verbalized. Agrees to plan of care.(Electronically signed by ODALYS Hernandez 07/23/2021 20:00) Name Value Range Interpretation Code Description Data Carolyn rce(s) Supporting Document(s) ID Date Data Source [id number] 05/17/2021 08:34:00 AM EDT [facility] ([facility]) Name Value Range Interpretation Code Description Data Carolyn rce(s) Supporting Document(s) Color of Urine Laboratory test result [facility] ([facility]) Appearance of Urine Laboratory test result [facility] ([facility]) Spec [place] 1.010 1.001-1.030 [facility] ([facility]) pH of Urine by Test strip 6 5-9 [facility] NT ([facility]) Leukocytes Laboratory test result [facility] ([facility]) Nitrate [Presence] in Urine Laboratory test result [facility] ([facility]) Inhouse Glucose Laboratory test result [facility] ([facility]) Protein [Presence] in Urine by Test strip [facility]) Ketones [Presence] in Urine by Test strip Laboratory test result [facility]) Urobilinogen Laboratory test result [facility] ([facility]) Blood type and Indirect antibody screen panel - Blood [facility] Bilirubin.total [Presence] in Urine by Test strip Laboratory test res ult [facility] ([facility]) ID Date Data Source [id number] 03/18/2021 04:31:00 PM EDT [facility] Name Value Range Interpretation Code Description Data Carolyn rce(s) Supporting Document(s) SARS coronavirus 2 RNA [Presence] in Res piratory specimen by JESSIKA with probe detection NEGATIVE [facility] This lab was ordered by [facility] a nd reported by [facility]. ID Date Data Source [id number] 03/12/2021 08:58:00 AM EDT [facility] ([facility], ) Name Value Range Interpretation Code Description Data Carolyn rce(s) Supporting Document(s) FVC-Pre 4.37 L [facility] ([facility], ) PDFReport Laboratory test result [facility] ([facility], ) FVC-Pred 3.78 L [facility] ([facility], ) FVC-%Pred-Pre 115 L [facility] ([facility], ) FVC-LLN 3.09 L [facility] ([facility], ) Fev1-Pred 3.31 L [facility] ([facility], ) Fev1-Pre 3.77 L [facility] ([facility]) Fev1-%Pred-Pre 113 L [facility] ([facility]) Fev1-LLN 2.72 L [facility] ([facility]) Fev6-Pred 3.79 L [facility] ([facility], ) Fev6-Pre 4.37 L [facility] ([facility], ) Fev6-%Pred-Pre 115 L [facility] ([facility]) Fev6-LLN 3.11 L [facility] ([facility] [place]) Ggs4zhk-Qkyl 86 % [facility] ([facility]) Tsy5rye-%Pred-Pre 99 % [facility] ([facility]) Mos2dqc-Zni 86 % [facility] ([facility]) Agk4ssd-Wfms 100 % [facility] ([facility]) Jbv3pgu-PAC 77 % [facility] ([facility]) Jbp5nwz-%Pred-Pre 99 % [facility] ([facility]) FEFMax-Pred 6.85 L/E/sec [facility] ([facility]) Lrc1sxu-Qnl 100 % [facility] ([facility]) FEFMax-Pre 7.17 L/E/sec [facility] ([facility]) FEFMax-%Pred-Pre 104 L/E/sec [facility] ([facility]) FEFMax-LLN 5.13 L/E/sec [facility] ([facility]) Cri7976-Kpl 4.21 L/E/sec [facility] ([facility]) Yng0966-Rexw 3.72 L/E/sec [facility] ([facility]) Lrl3980-%Pred-Pre 113 L/E/sec [facility] ([facility]) Akt0970-BOB 2.48 L/E/sec [facility] ([facility]) ExpTime-Pre 5.81 sec [facility] ([facility]) Oek5mpj1-Leau 87 % [facility] ([facility]) Xuk9ohc9-Qyl 86 % [facility] ([facility]) Air2awj9-%Pred-Pre 99 % [facility] ([facility]) Yae8kxa5-JAI 78 % [facility] ([facility]) ID Date Data Source [id number] 01/09/2021 07:32:00 AM EDT [facility] ([facility]) Name Value Range Interpretation Code Description Data Carolyn rce(s) Supporting Document(s) PDFReport Laboratory test result [facility] ([facility]) FVC-Pre 4.35 L [facility] ([facility] [place]) FVC-Pred 3.78 L [facility] ([facility] [place]) FVC-%Pred-Pre 114 L [facility] ([facility]) FVC-LLN 3.09 L [facility] ([facility] [place]) Fev1-Pre 3.75 L [facility] ([facility] [place]) Fev1-Pred 3.31 L [facility] ([facility] [place]) Fev1-%Pred-Pre 113 L [facility] ([facility]) Fev1-LLN 2.72 L [facility] ([facility] [place]) Fev6-Pred 3.79 L [facility] ([facility] [place]) Fev6-Pre 4.35 L [facility] ([facility] [place]) Fev6-%Pred-Pre 114 L [facility] ([facility]) Fev6-LLN 3.11 L [facility] ([facility] [place]) Ktg7ndc-Yfdz 86 % [facility] ([facility]) Put4hhn-Rqf 86 % [facility] ([facility]) Dzs1zjw-HBX 77 % [facility] ([facility]) Avs8zhr-%Pred-Pre 99 % [facility] ([facility]) Ydl2pmv-Otk 100 % [facility] ([facility]) Byw7csn-Rflc 100 % [facility] ([facility]) Ymf2ghm-%Pred-Pre 99 % [facility] ([facility]) FEFMax-Pred 6.85 L/E/sec [facility] ([facility]) FEFMax-Pre 7.05 L/E/sec [facility] ([facility]) FEFMax-%Pred-Pre 102 L/E/sec [facility] ([facility]) FEFMax-LLN 5.13 L/E/sec [facility] ([facility]) Sih4294-Hbrf 3.72 L/E/sec [facility] ([facility]) Nnb5095-Jps 4.16 L/E/sec [facility] ([facility]) Mqv8929-%Pred-Pre 111 L/E/sec [facility] ([facility]) ExpTime-Pre 3.96 sec [facility] ([facility]) Sqq5686-BYB 2.48 L/E/sec [facility] ([facility]) Abc9aqd7-Exw 86 % [facility] ([facility]) Alh2muj0-Xpde 87 % [facility] ([facility]) Mwe4miq5-%Pred-Pre 99 % [facility] ([facility]) Mdw4img9-YZP 78 % [facility] ([facility]) ID Date Data Source [id number] 12/26/2020 03:10:00 PM EST [facility] Name Value Range Interpretation Code Description Data Carolyn rce(s) Supporting Document(s) SARS coronavirus 2 RNA Not Detected [facility] This lab was ordered by [facility] and reported by [facility]. Procedure Social History Code Duration Value Status Description Data Source(s ) Smoking 03/12/2021 12:00:00 AM EDT Patient is a former smoker completed Patient is a former smoker [facility] ([facility]) Smoking 01/09/2021 12:00:00 AM EDT Patient is a former smoker completed Patient is a former smoker [facility] ([facility], ) Vital Signs ID Date Data Source UNK Name Value Range Interpretation Code Description Data Source(s) Systolic blood pressure 121 mm[Hg] 121 mm[Hg] [facility] Diastolic blood pressure 76 mm[Hg] 76 mm[Hg] [facility] ([facility]) Heart rate 94 /min 94 /min [facility] ([facility]) Oxygen saturation in Arterial blood by Pulse oximetry 96 % 96 % [facility] ([facility]) Body weight 145.00 [lb_av] 145.00 [lb_av] [facility] T ([facility]) Body weight 65.772 kg 65.772 kg [facility] ([facility]) Body height 64 [in_i] 64 [in_i] [facility] ([facility]) 5'4" Body mass index (BMI) [Ratio] 24.9 kg/m2 24.9 k g/m2 [facility] ([facility]) Body surface area Derived from formula 1.71 m2 1.71 m2 [facility] ([facility]) Oxygen saturation in Arterial blood by Pulse oximetry 99 % 99 % [facility] ([facility]) Body height 64 [in_i] 64 [in_i] [facility] ([facility]) 5'4" Body weight 149.50 [lb_av] 149.50 [lb_av] [facility]) Body mass index (BMI) [Ratio] 25.7 kg/m2 25.7 k g/m2 [facility] ([facility]) [place] body weight 120 [lb_av] 120 [lb_av] [facility] ([facility]) Body weight 67.813 kg 67.813 kg [facility] ([facility]) Body surface area Derived from formula 1.73 m2 1.73 m2 [facility] ([facility]) Systolic blood pressure 120 mm[Hg] 120 mm[Hg] M [facility] ([facility]) Diastolic blood pressure 68 mm[Hg] 68 mm[Hg] [facility] ([facility]) Heart rate 90 /min 90 /min [facility] ([facility]) Oxygen saturation in Arterial blood by Pulse oximetry 99 % 99 % [facility] ([facility]) Body height 64 [in_i] 64 [in_i] [facility] ([facility]) 5'4" Body weight 149.50 [lb_av] 149.50 [lb_av] [facility] T ([facility]) Body mass index (BMI) [Ratio] 25.7 kg/m2 25.7 k g/m2 [facility] ([facility]) [place] body weight 120 [lb_av] 120 [lb_av] [facility] T ([facility]) Body weight 67.813 kg 67.813 kg [facility] ([facility]) Body surface area Derived from formula 1.73 m2 1.73 m2 [facility] ([facility]) Body height 64 [in_i] 64 [in_i] [facility] ([facility]) 5'4" Oxygen saturation in Arterial blood by Pulse oximetry 99 % 99 % [facility] ([facility]) Body weight 156.00 [lb_av] 156.00 [lb_av] [facility] ([facility]) Body mass index (BMI) [Ratio] 26.8 kg/m2 26.8 k g/m2 [facility] ([facility]) [place] body weight 120 [lb_av] 120 [lb_av] [facility] ([facility]) Body weight 70.762 kg 70.762 kg [facility] ([facility]) Body surface area Derived from formula 1.76 m2 1.76 m2 [facility] ([facility]) Systolic blood pressure 122 mm[Hg] 122 mm[Hg] [facility] Diastolic blood pressure 80 mm[Hg] 80 mm[Hg] [facility] ([facility]) Heart rate 86 /min 86 /min [facility] ([facility]) Oxygen saturation in Arterial blood by Pulse oximetry 99 % 99 % [facility] ([facility]) Body height 64 [in_i] 64 [in_i] [facility] ([facility]) 5'4" Body weight 156.00 [lb_av] 156.00 [lb_av] [facility] T ([facility]) Body mass index (BMI) [Ratio] 26.8 kg/m2 26.8 k g/m2 [facility] ([facility]) [place] body weight 120 [lb_av] 120 [lb_av] [facility] T ([facility]) Body weight 70.762 kg 70.762 kg [facility] ([facility]) Body surface area Derived from formula 1.76 m2 1.76 m2 [facility] ([facility]) Body surface area Derived from formula 1.76 m2 1.76 m2 [facility] ([facility]) Systolic blood pressure 116 mm[Hg] 116 mm[Hg] [facility] ([facility]) Diastolic blood pressure 78 mm[Hg] 78 mm[Hg] [facility] ([facility]) Heart rate 67 /min 67 /min [facility] ([facility]) Oxygen saturation in Arterial blood by Pulse oximetry 99 % 99 % [facility] ([facility]) Body temperature 97.3 [degF] 97.3 [degF] [facility] ([facility]) Body height 64 [in_i] 64 [in_i] [facility] ([facility]) 5'4" Body weight 155.00 [lb_av] 155.00 [lb_av] [facility] ([facility]) Body mass index (BMI) [Ratio] 26.6 kg/m2 26.6 k g/m2 [facility] ([facility]) [place] body weight 120 [lb_av] 120 [lb_av] [facility] T ([facility]) Body weight 70.308 kg 70.308 kg [facility] ([facility]) ID Date Data Source [id number] 08/15/2021 10:08:[address] [facility] Name Value Range Interpretation Code Description Data Source(s) WEIGHT RECORDED 160.00 pounds 160.00 pounds [facility] Height 64 Inches 064 Inches [facility]
--- NOTE | 2021-09-16 14:24 | REP ---
INDICATION: stubbed toe COMPARISON: None. TECHNIQUE: AP, lateral, bilateral oblique views right foot. FINDINGS: The osseous structures and joint spaces are intact and normal. There is no evidence for acute fracture or dislocation. Surrounding soft tissues are unremarkable. No subcutaneous emphysema or radiodense foreign body. IMPRESSION: . No acute fracture or dislocation. <Electronically signed by Osmel Wolfe > 09/16/21 [id number]
--- OUTSIDE RECORDS SUMMARY | 2021-09-16 16:21 | CCD ---
Author Author [facility] Organization [facility] Address Unknown Phone Unavailable Care Team Providers Care Veneer Taping Machine Offbearer Name Role Phone NO, PCP Unavailable Unavailable Nicola, L Dahlia AGRICULTURAL SERVICES DIRECTOR Unavailable Unavailable Nicola, L Dahlia AGRICULTURAL SERVICES DIRECTOR Unavailable Unavailable Nicola, L Dahlia AGRICULTURAL SERVICES DIRECTOR Unavailable Unavailable Nicola, L Dahlia AGRICULTURAL SERVICES DIRECTOR Unavailable Unavailable Nicola, L Dahlia AGRICULTURAL SERVICES DIRECTOR Unavailable Unavailable Nicola, L Dahlia AGRICULTURAL SERVICES DIRECTOR Unavailable Unavailable Nicola, L Dahlia AGRICULTURAL SERVICES DIRECTOR Unavailable Unavailable Nicoal, L Dahlia AGRICULTURAL SERVICES DIRECTOR Unavailable Unavailable Nicola, L Dahlia AGRICULTURAL SERVICES DIRECTOR Unavailable Unavailable Nicola, L Dahlia AGRICULTURAL SERVICES DIRECTOR Unavailable Unavailable Nicola, L Dahlia AGRICULTURAL SERVICES DIRECTOR Unavailable Unavailable Nicola, L Dahlia AGRICULTURAL SERVICES DIRECTOR Unavailable Unavailable Nicola, L Dahlia AGRICULTURAL SERVICES DIRECTOR Unavailable Unavailable Nicola, L Dahlia AGRICULTURAL SERVICES DIRECTOR Unavailable Unavailable Nicola, L Dahlia AGRICULTURAL SERVICES DIRECTOR Unavailable Unavailable Nicola, L Dahlia AGRICULTURAL SERVICES DIRECTOR Unavailable Unavailable Nicola, L Dahlia AGRICULTURAL SERVICES DIRECTOR Unavailable Unavailable Nicola, L Dahlia AGRICULTURAL SERVICES DIRECTOR Unavailable Unavailable Nicola, L Dahlia AGRICULTURAL SERVICES DIRECTOR Unavailable Unavailable Nicola, L Dahlia AGRICULTURAL SERVICES DIRECTOR Unavailable Unavailable Nicola, L Dahlia AGRICULTURAL SERVICES DIRECTOR Unavailable Unavailable Nicola, L Dahlia AGRICULTURAL SERVICES DIRECTOR Unavailable Unavailable Nicola, L Dahlia AGRICULTURAL SERVICES DIRECTOR Unavailable Unavailable Nicola, L Dahlia AGRICULTURAL SERVICES DIRECTOR Unavailable Unavailable Nicola, L Dahlia AGRICULTURAL SERVICES DIRECTOR Unavailable Unavailable Chadd Oropeza MD Unavailable Unavailable [...] is protected by Article 27-F of the [facility] Public Health law. If you continue you may have access to information: Regarding HIV / AIDS; Provided by facilities licensed or operated by the [facility] Office of Mental Health; or Provided by the [facility] Office for People With Developmental Disabilities. If such information is present, then the following [facility] mandated warning applies: This information has been [...] law may result in a fine or custodial sentence or both. A general authorization for the release of medical or other information is NOT sufficient authorization for further disc losure. Allergies and Adverse Reactions Type Description Substance Reaction Status Data Source(s ) No Known Drug Allergies No Known Drug Allergies [facility] No Known Environmental Allergies No Known Environmental Al lergies [facility] No Known Food Allergies No Known Food Allergies [facility] Encounters Encounter Providers Location Date Indications Data Source(s ) Outpatient Attender: TOMMY CANO MDConsultant: PCP NO 08/09/2021 09:00:00 AM EDT - 08/09/2021 12:31:00 PM EDT [facility] Patient discharged. Outpatient Attender: TOMMY CANO MDConsultant: PCP NO 07/31/2021 12:17:26 PM EDT - 08/01/2021 12:07:00 PM [facility]. Emergency Attender: Chadd Oropeza MD 07/23/2021 03:38:00 PM EDT - 07/23/2021 05:05:00 PM EDT [facility] Patient discharged. Outpatient Attender: TOMMY CANO MD 06/26/20 01:01:00 PM EDT - 06/26/2021 01:01:00 PM EDT [facility] Outpatient Attender: TOMMY CANO MD [facility] 05/17/2021 03:30:0 0 PM EDT [facility] ([facility]) Outpatient Attender: TOMMY CANO MD 05/17/20 03:20:00 PM EDT - 05/17/2021 03:20:00 PM EDT [facility] Outpatient Attender: Dahlia Ivan/Paterson/Daniel/Reindl 03/12/2021 09:00:00 AM EDT [facility] ([facility], ) Outpatient Attender: Dahlia Ivan/Paterson/Daniel/Reindl 01/23/2021 03:30:00 PM EDT [facility] ([facility]) Outpatient Attender: Dahlia Ivan/Paterson/Daniel/Reindl 01/09/2021 10:00:00 AM EDT [facility] ([facility]) Medications Medication Brand Name Start Date Product [...] 12:00:00 AM EDT RESPIRATORY active [facility] ( [facility], ) 200 ACTUAT Albuterol 0.09 MG/ACTUAT Metered Dose Inhal er [Ventolin] Ventolin [facility] 01/23/2021 12:00:00 AM EDT RESPIRATORY active [facility] ([facility], ) Aerochamber Plus Krish-Vu 01/23/2021 12:00:00 AM EDT active [facility] ([facility], ) Insurance Providers Payer name Policy type / Coverage type Policy ID Covered alliance party ID Covered alliance party's relationship to zamarripa Policy Zamarripa Plan Information [facility] [id number] 18 [id number] [facility] [place] [id number] 18 [id number] [facility] [place] [id number] 18 [id number] [facility] ACTIVE DUTY [id number] SP [id number] Problems, Conditions, and Diagnoses Code Display Name Description Problem Type Effective Dates Data Source(s) D76487 Personal history of urinary (tract) infe ctions Personal history of urinary (tract) infections Diagnosis 08/09/2021 09:00:00 AM [facility] Z8742 Personal history of other diseases of th e female genital tract Personal history of other diseases of the female genital tract Diagnosis 08/09/2021 09:00:00 AM [facility] L55334 Personal history of other diseases of ur inary system Personal history of other diseases of urinary system Diagnosis 08/09/2021 09:00:00 AM [facility] Z98426 Nicotine dependence, unspecified, uncomp licated Nicotine dependence, unspecified, uncomplicated Diagnosis 08/09/2021 09:00:00 AM [facility] N393 Stress incontinence (female) (male) Stress incon tinence (female) (male) Diagnosis 08/09/2021 09:00:00 AM [facility] L80419 Encounter for other preprocedural examin ation Encounter for other preprocedural examination Diagnosis 08/01/2021 11:25:00 AM [facility] O08441 Nicotine dependence, other tobacco produ ct, uncomplicated Nicotine dependence, other tobacco product, uncomplicated Diagnosis 07/23 03:38:00 PM [facility] W06329 Unspecified asthma, uncomplicated Unspecified as thma, uncomplicated Diagnosis 07/23/2021 03:38:00 PM [facility] K047 Periapical abscess without sinus Periapical absc ess without sinus Diagnosis 07/23/2021 03:38:00 PM EDT [facility] M25712 Cellulitis of umbilicus Cellulitis of umbilicus Diagno sis 07/23/2021 03:38:00 PM EDT [facility] R21 Rash and other nonspecific skin eruption Rash and other nonspecific skin eruption Diagnosis 07/23/2021 03:38:00 PM EDT [facility] Z712 Person consulting for explanation of exa mination or test findings Person consulting for explanation of examination or test findings Diagnosis 05/17/2021 03:20:00 PM EDT [facility] M82422 Nicotine dependence, cigarettes, uncompl icated Nicotine dependence, cigarettes, uncomplicated Diagnosis 05/17/2021 03:20:00 PM EDT [facility] N390 Urinary tract infection, site not specif ied Urinary tract infection, site not specified Diagnosis 05/17/2021 03:20:00 PM EDT [facility] Z87.440 History of chronic urinary tract infecti on History of chronic urinary tract infection Problem 06/26/2021 12:00:00 AM EDT [facility] ([facility]) N39.3 Female stress incontinence Female stress incontinence Problem 06/26/2021 12:00:00 AM EDT [facility] ([facility]) J45.30 Mild persistent asthma Mild persistent asthma Problem 01/23/2021 12:00:00 AM EDT [facility] Surgeries/Procedures Procedure Description Date Indications Data Source(s) OFFICE OUTPATIENT NEW 30 MINUTES 05/17/2021 12:00:00 A M EDT [facility] ([facility]) OFFICE OUTPATIENT NEW 20 MINUTES 05/17/2021 12:00:00 A M EDT [facility] ([facility]) Spirometry 03/12/2021 12:00:00 AM EDT [facility] ([facility], ) OFFICE OUTPATIENT VISIT 15 MINUTES 03/12/2021 12:00:00 AM EDT [facility] ([facility]) Bronchospasm Evaluation 01/17/2021 12:00:00 AM EDT [facility] ([facility], ) Plethysmography Determination Lung Volumes & Per Airway Resi st 01/17/2021 12:00:00 AM EDT [facility] ([facility], ) DIFFUSING CAPACITY 01/17/2021 12:00:00 AM EDT [facility] ([facility], ) Spirometry 01/09/2021 12:00:00 AM EDT M [facility] ([facility], ) Results ID Date Data Source [id number] 08/09/2021 01:32:00 [place] [address] OPERATIVE SUMMARYNAME: KIKE Tijerina DATE OF : 2000ATTENDING PHYS: TOMMY CANO MD DATE: 08/09/21 MR#: [id number] OF PROCEDURE: 08/09/2021REOPERATIVE DIAGNOSIS: Recurrent UTIs.POST-OPERATIVE DIAGNOSIS: Recurrent UTIs.PROCEDURE PERFORMED: Cystoscopy with urethral dilatation.ATTENDING SURGEON: Dr. Tommy Cano.PHYSICIAN RESEARCH COORDINATOR: ODALYS Ortiz.ANESTHESIA: Monitored anesthesia care.ANESTHESIOLOGIST: Kushal Aguilar [...] in the lithotomy position. The perineal [address] [place] [address] OPERATIVE SUMMARYNAME: KIKE Tijerina DATE OF : 2000ATTENDING PHYS: TOMMY CANO MD DATE: 08/09/21 MR#: [id number] vaginal areas were then properly cleaned, prepped, and draped in the usual sterile fashion.After the proper time-out procedures were carried out, the perineum was examined and the urethraidentified. The urethra was then serially dilated from 18 Indian to a maximum of 30 Indian.Cystoscopy was then performed and no intravesical pathologies were noted. The bladder was thenemptied and the cystoscope was withdrawn. With the operation at this point now completed, theanesthesia was reversed. The patient was transferred onto a stretcher, on which she was transferredto the Ambulatory Surgical Unit in stable condition. The operation was well-tolerated, and therewere no complications.Copies of this report to [facility].DD: TOMMY CANO MD 08/09/21 12:04DT: KAYLYN 08/09/21 13:26DS: TOMMY CANO MD 08/13/21 08:30 2 Name Value Range Interpretation Code Description Data Carolyn rce(s) Supporting Document(s) ID Date Data Source [id number] 08/09/2021 10:07:00 AM EDT [facility] Name Value Range Interpretation Code Description Data Carolyn rce(s) Supporting Document(s) HCG SERUM QUAL NEGATIVE NORMAL: NEGATIVE [facility] HCG SERUM QL REENTER NEGATIVE NORMAL: NEGATIVE [facility] { KIT LOT # [id number] ){ KIT EXP DATE 11/25/22 ){ PROCEDURAL CONTROL VALID ) ID Date Data Source [id number] 07/23/2021 03:38:00 PM EDT [facility] 1 OrderSheet [facility] Emergency Department [address] [place] [address] Phone #: ext- [phone] 07/23/2021 15:32 Patient: STELLA FAIR Sex: F [...] rce(s) Supporting Document(s) ID Date Data Source [id number] 07/23/2021 03:38:00 PM EDT [facility] 1 Medication Reconciliation Report [facility] Emergency Department [address] [place] [address] Phone #: ext- [phone] 07/23/2021 15:32 Patient: [...] 0. Substi tution permitted.Pharmacy - [facility] - [id number] ; [place] [address]. .ibuprofen 800 mg tablet Take 1 tablet every eight hours as needed for pain for 5 days -- Dispense 15tablet. Refills: 0. Substitution permitted.Pharmacy - [facility] - [address] ; [place] [address]. . -- ODALYS Hernandez Name Value Range Interpretation Code Description Data Carolyn rce(s) Supporting Document(s) ID Date Data Source [id number] 07/23/2021 03:38:00 PM EDT [place] [address] Medication Administration Record [facility] Emergency Department [address] [place] [address] Phone #: ext- [phone] 07/23/2021 15:32 Patient: STELLA FAIR Sex: F : 2000 Age: 21yWeight: 65.7 kgHeight/Length: 64 inBMI: 24.9ALLERGIES: No Known Drug Allergy Date/Time Medication Administered Medication OrderedGiven ROCEPHIN [IM] (CEFTRIAXONE Rocephin IM 1000 mg (NOW x1)16:48 07/23/2021 SODIUM)Jaqueline Edmond R.N. Dose: 1 gm IM With: 1% LIDOCAINE 2.1 mL Name Value Range Interpretation Code Description Data Carolyn rce(s) Supporting Document(s) ID Date Data Source [id number] 07/23/2021 03:38:00 PM EDT [place] [address] General Instructions [facility] Emergency Department [address] [place] [address] Phone #: ext- [phone] 07/23/2021 15:32 Patient: STELLA FAIR Sex: F [...] 30 capsule. Refills: 0. Substitution permitted.Pharmacy - [facility] [employer] [address] ; [place] [address]. .ibuprofen 800 mg tablet Take 1 tablet every eight hours as needed for pain for 5 days -- Dispense 15tablet. Refills: 0. Substitution permitted.Pharmacy - [facility] - [address] ; [place] [address]. .Follow-up:Follow up with your healthcare provider in [...] to plan of care. 2 General Instructions [facility] Emergency Department [address] [place] [address] Phone #: ext- [phone] 07/23/2021 15:32 Patient: [...] Red areas that spread 3 General Instructions [facility] Emergency Department [address] [place] [address] Phone #: ext- [phone] 07/23/2021 15:32 Patient: STELLA FAIR Sex: F : 2000 Age: 21y Swelling or pain that gets worse Fluid leaking from the skin (pus) Fever higher of 100.4 F (38.0 C) or higher after 2 days on antibiotics [id number] [employer]. [address] [place] [address]. All rights reserved. This information is not [...] over the tooth.Home care 4 General Instructions [facility] Emergency Department [address] [place] [address] Phone #: ext- [phone] 07/23/2021 15:32 Patient: [...] reduce pain. Oil of cloves is sold eycy-hut-odzmndw in pharmacies. Some pharmacies carry an ncjm-ltb-vlhmhkm "toothache kit." This contains oil of cloves [...] low-up careFollow up as advised with an coal crusher operator, or oral surgeon. Even though your pain may improve withthe treatment given today, only a dentist, coal crusher operator, or oral surgeon can provide full treatment forthis problem. If a culture was done, you will be told if the treatment needs to be changed. You can call in as directed for the results. If X-rays were taken, they will be reviewed by a specialist. You will be given the results, especially if they affect treatment.Call [phone] [phone] if any of these occur: Trouble breathing or swallowing, or wheezing Hoarse voice or trouble speaking Confusion Extreme drowsiness or trouble awakening 5 General Instructions [facility] Emergency Department [address] [place] [address] Phone #: ext- [phone] 07/23/2021 15:32 Patient: [...] tooth You can't open your mouth wide [id number] [employer]. [address] [place] [address]. All rights reserved. This information is not intended as asubstitute for professional medical care. Always follow your healthcare professional's instructions.Dental Pain 6 General Instructions [facility] Emergency Department [address] [place] [address] Phone #: ext- [phone] 07/23/2021 15:32 Patient: [...] temperature. Use toothpaste made for sensitive teeth. [place] gently up and down instead of sideways. Brushing sideways can wear away root surfaces if they are exposed. If your tooth is chipped or cracked, see a dentist right away. For short-term pain relief, put clove oil right on the tooth. You can buy clove oil at pharmacies. Some pharmacies carry an xewo-lre-xuofqgi toothache kit. This has a paste you can put on the exposed tooth to make it less sensitive. 7 General Instructions [facility] Emergency Department [address] [place] [address] Phone #: ext- [phone] 07/23/2021 15:32 Patient: STELLA FAIR Sex: F : 2000 Age: 21y Use a cold pack. Put a cold pack on your jaw over the sore area to help reduce pain. Ask your healthcare provider about using gewk-lsr-cxmzubp medicine for pain. You may use this [...] your provider Pus drains from the tooth [phone] [employer]. [address] [place] [address]. All rights reserved. This information is not intended as asubstitute for professional medical care. Always follow your healthcare professional's instructions. You have been given the following additional information: Cellulitis Tooth Abscess Dental Pain 8 General Instructions [facility] Emergency Department [address] [place] [address] Phone #: ext- [phone] 07/23/2021 15:32 Patient: STELLA FAIR Sex: F : 2000 Age: 21yNo strenuous activity until better. Rest at home today.(Electronically signed by ODALYS Hernandez 07/23/2021 20:00) Name Value Range Interpretation Code Description Data Carolyn rce(s) Supporting Document(s) ID Date Data Source [id number] 07/23/2021 03:38:00 PM EDT [facility] 1 Clinical Report - Nurses [facility] Emergency Department [address] [place] [address] Phone #: ext- [phone] 07/23/2021 15:32 Patient: STELLA FAIR Sex: F : 2000 Age: 21yTRIAGEArrived by private vehicle. Historian: patient.Acuity: LEVEL 4.Chief Complaint: TENDER AREA.Alert. No acute distress.Reported as (umbilicus). ( Patient reports purulent drainage from belly button ring today. Took out jewelryPTA. States she also has dental pain "thinks something is wrong with her root canal". Was prescribedamoxicillin by sofa inspector for possible tooth infection this morning but [...] 64 inches. BMI: 24.9. --15:42 07/23/21 Anita Willoughby R.N.MedicationsVenlafaxine HCl ER Oral 225 mg. --15:41 07/23/21 Anita Willoughby R.N. buPROPion HCl Oral 15 mg. --15:41 07/23/21 Anita Willoughby R.N. Gabapentin Oral (unknown dose). --15:42 07/23/21 Anita Willoughby R.N.AllergiesNo Known Drug Allergy. --15:41 07/23/21 Anita Willoughby R.N.PROBLEMS:Depression.Asthma. --15:42 07/23/21 Anita Willoughby R.N.ADDITIONAL SURGERIES:[place] teeth. --15:42 07/23/21 Anita Willoughby R.N.HistoryPAST MEDICAL HX: Immunizations: up-to-date. Last normal menstrual period- Jul 15.SOCIAL HX: Smoker- current status unknown (electronic cigarrettes). Regular alcohol use. No drug use.She was offered HIV testing but declined and hepatitis C testing but declined. She has not traveledoutside the [place] 2 Clinical Report - Nurses [facility] Emergency Department [address] [place] [address] Phone #: ext- [phone] 07/23/2021 15:32 Patient: STELLA FAIR Sex: F [...] / DISCHARGE 3 Clinical Report - Nurses [facility] Emergency Department [address] [place] [address] Phone #: ext- [phone] 07/23/2021 15:32 Patient: STELLA FAIR Sex: F : 2000 Age: 21y 16:43 07/23/21. BP: 107/71. HR: 103. RR: 16. O2 saturation: 100%. Temp: 99.3 F. Pain level now 10. --16:43 07/23/21 [facility] Deepa Manzano 17:05 07/23/21. Departure time: late entry - 17:05 07/23/2021. [place] Coma Scale: 15- eyes open- spontaneous (4); [...] Patient verbalized understanding. Written instructions provided in Pryde[place]ig. The patient was discharged by the physician assistant auditor. She was discharged home and unaccompanied at time of discharge. She left ambulatory and via private vehicle. Patient driving. --17:08 07/23/21 Jaqueline Edmond R.N.Locked/Released at 07/23/2021 17:08 by Jaqueline Edmond R.N. Name Value Range Interpretation Code Description Data Carolyn rce(s) Supporting Document(s) ID Date Data Source [id number] 07/23/2021 03:38:00 PM EDT [facility] 1 Clinical Report - Physicians/Mid Levels [facility] Emergency Department [address] [place] [address] Phone #: ext- [phone] 07/23/2021 15:32 Patient: [...] is up-to-date. Problems: Depression. Asthma. Additional Surgeries: [place] teeth. Medications: Gabapentin Oral (unknown dose). buPROPion HCl Oral 15 mg. Venlafaxine HCl ER Oral 225 mg. Allergies: No Known Drug Allergy.SOCIAL HISTORYSmoker- current status unknown. Alcohol use. No drug use. No recent travel.ADDITIONAL NOTESThe nursing notes have been reviewed with agreement regarding the chief complaint, HPI, ROS, PMH andpatient medications and allergies. 2 Clinical Report - Physicians/Mid Levels [facility] Emergency Department [address] [place] [address] Phone #: ext- [phone] 07/23/2021 15:32 Patient: [...] distress. Breath sounds normal. Chest nontender.Breast Exam: Cna Hha present (Ora CARRIZALES).Left Breast: No mass present [...] resolve). 3 Clinical Report - Physicians/Mid Levels [facility] Emergency Department [address] [place] [address] Phone #: ext- [phone] 07/23/2021 15:32 [id number] Sex: F : 2000 Age: 21y Warnings: [...] capsule. Refills: 0. Substitution permitted. Pharmacy - [facility] [employer] [address] [facility] ; [place] [address]. . ibuprofen 800 mg tablet Take 1 tablet every eight hours as needed for pain for 5 days -- Dispense 15 tablet. Refills: 0. Substitution permitted. Pharmacy - [facility] [employer] [address] [facility] ; [place] [address]. . Follow-up: Follow up with your healthcare [...] rce(s) Supporting Document(s) ID Date Data Source [id number] 05/17/2021 08:34:00 AM EDT [facility] ([facility]) Name Value Range Interpretation Code Description Data Carolyn rce(s) Supporting Document(s) Color of Urine Laboratory test result [facility] ([facility]) Appearance of Urine Laboratory test result [facility] ([facility]) Spec Valentine 1.010 1.001-1.030 [facility] ([facility]) pH of Urine by Test strip 6 5-9 [facility] NT ([facility]) Leukocytes Laboratory test result [facility] ([facility]) Nitrate [Presence] in Urine Laboratory test result [facility] ([facility]) Inhouse Glucose Laboratory test result [facility] ([facility]) Protein [Presence] in Urine by Test strip [facility] Ketones [Presence] in Urine by Test strip [facility]) Urobilinogen Laboratory test result [facility] ([facility]) Blood type and Indirect antibody screen panel - Blood Laboratory [facility]) Bilirubin.total [Presence] in Urine by Test strip Laboratory test res ult [facility] ([facility]) ID Date Data Source [id number] 03/18/2021 04:31:00 PM EDT [facility] Name Value Range Interpretation Code Description Data Carolyn rce(s) Supporting Document(s) SARS coronavirus 2 RNA [Presence] in Res piratory specimen by JESSIKA with probe detection NEGATIVE [facility] This lab was ordered by [facility] a nd reported by [facility]. ID Date Data Source [id number] 03/12/2021 08:58:00 AM EDT [facility] ([facility], ) Name Value Range Interpretation Code Description Data Carolyn rce(s) Supporting Document(s) FVC-Pre 4.37 L [facility] ([facility], ) PDFReport Laboratory test result [facility] ([facility], ) FVC-Pred 3.78 L [facility] ([facility], ) FVC-%Pred-Pre 115 L [facility] ([facility], ) FVC-LLN 3.09 L [facility] ([facility], ) Fev1-Pred 3.31 L [facility] ([facility], ) Fev1-Pre 3.77 L [facility] ([facility]) Fev1-%Pred-Pre 113 L [facility] ([facility]) Fev1-LLN 2.72 L MEDENT ([facility]) Fev6-Pred 3.79 L [facility] ([facility], ) Fev6-Pre 4.37 L [facility] ([facility], ) Fev6-%Pred-Pre 115 L [facility] ([facility]) Fev6-LLN 3.11 L [facility] ([facility]) Nyd8dcz-Dvmp 86 % [facility] ([facility]) Txu5pnx-%Pred-Pre 99 % [facility] ([facility]) Luq8ejw-Hhg 86 % [facility] ([facility]) Hmp4afi-Oaym 100 % [facility] ([facility]) Xhf8vbl-YBE 77 % [facility] ([facility]) Reb1qva-%Pred-Pre 99 % [facility] ([facility]) FEFMax-Pred 6.85 L/E/sec [facility] ([facility]) Ibz2zie-Fvp 100 % [facility] ([facility]) FEFMax-Pre 7.17 L/E/sec [facility] ([facility]) FEFMax-%Pred-Pre 104 L/E/sec [facility] ([facility]) FEFMax-LLN 5.13 L/E/sec [facility] ([facility]) Qas9832-Lie 4.21 L/E/sec [facility] ([facility]) Cpp4615-Pqzm 3.72 L/E/sec [facility] ([facility]) Jwp7107-%Pred-Pre 113 L/E/sec [facility] ([facility]) Xwy8731-LOI 2.48 L/E/sec [facility] ([facility]) ExpTime-Pre 5.81 sec [facility] ([facility]) Knz4irz2-Oiaq 87 % [facility] ([facility]) Wed1ble3-Ezu 86 % [facility] ([facility]) Nra0uhk5-%Pred-Pre 99 % [facility] ([facility]) Rdi4qas6-ZBE 78 % [facility] ([facility]) ID Date Data Source [id number] 01/09/2021 07:32:00 AM EDT [facility] ([facility]) Name Value Range Interpretation Code Description Data Carolyn rce(s) Supporting Document(s) PDFReport Laboratory test result [facility] ([facility]) FVC-Pre 4.35 L [facility] ([facility]) FVC-Pred 3.78 L [facility] ([facility]) FVC-%Pred-Pre 114 L [facility] ([facility]) FVC-LLN 3.09 L [facility] ([facility]) Fev1-Pre 3.75 L [facility] ([facility]) Fev1-Pred 3.31 L [facility] ([facility]) Fev1-%Pred-Pre 113 L [facility] ([facility]) Fev1-LLN 2.72 L [facility] ([facility]) Fev6-Pred 3.79 L [facility] ([facility]) Fev6-Pre 4.35 L [facility] ([facility]) Fev6-%Pred-Pre 114 L [facility] ([facility]) Fev6-LLN 3.11 L [facility] ([facility]) Zhe5wke-Sqys 86 % [facility] ([facility]) Azb9elg-Dlv 86 % [facility] ([facility]) Tis5rgy-KIU 77 % [facility] ([facility]) Avp1lne-%Pred-Pre 99 % [facility] ([facility]) Wkh2ghr-Bss 100 % [facility] ([facility]) Esk8pvj-Gmcd 100 % [facility] ([facility]) Bvz5lny-%Pred-Pre 99 % [facility] ([facility]) FEFMax-Pred 6.85 L/E/sec [facility] ([facility]) FEFMax-Pre 7.05 L/E/sec [facility] ([facility]) FEFMax-%Pred-Pre 102 L/E/sec [facility] ([facility]) FEFMax-LLN 5.13 L/E/sec [facility] ([facility]) Wec0469-Fzwg 3.72 L/E/sec [facility] ([facility]) Mwz9211-Wnz 4.16 L/E/sec [facility] ([facility]) Nud7756-%Pred-Pre 111 L/E/sec [facility] ([facility]) ExpTime-Pre 3.96 sec [facility] ([facility]) Pgw4694-SYB 2.48 L/E/sec [facility] ([facility]) Xgt0xle8-Fmi 86 % [facility] ([facility]) Coh6odx9-Vtae 87 % [facility] ([facility]) Uzy6lwb5-%Pred-Pre 99 % [facility] ([facility]) Rkc5rrg1-LFH 78 % [facility] ([facility]) ID Date Data Source [id number] 12/26/2020 03:10:00 PM EST [facility] Name Value Range Interpretation Code Description Data Carolyn rce(s) Supporting Document(s) SARS coronavirus 2 RNA Not Detected [facility] This lab was ordered by [facility] and reported by [facility]. Procedure Social History Code Duration Value Status Description Data Source(s ) Smoking 03/12/2021 12:00:00 AM EDT Patient is a former smoker completed Patient is a former smoker [facility] ([facility]) Smoking 01/09/2021 12:00:00 AM EDT Patient is a former smoker completed Patient is a former smoker [facility] ([facility], ) Vital Signs ID Date Data Source UNK Name Value Range Interpretation Code Description Data Source(s) Systolic blood pressure 121 mm[Hg] 121 mm[Hg] M EDENT ([facility]) Diastolic blood pressure 76 mm[Hg] 76 mm[Hg] [facility] ([facility]) Heart rate 94 /min 94 /min [facility] ([facility]) Oxygen saturation in Arterial blood by Pulse oximetry 96 % 96 % [facility] ([facility]) Body weight 145.00 [lb_av] 145.00 [lb_av] [facility] T ([facility]) Body weight 65.772 kg 65.772 [facility] Body height 64 [in_i] 64 [in_i] [facility] ([facility]) 5'4" Body mass index (BMI) [Ratio] 24.9 kg/m2 24.9 k g/m2 [facility] ([facility]) Body surface area Derived from formula 1.71 m2 1.71 m2 [facility] ([facility]) Systolic blood pressure 120 mm[Hg] 120 mm[Hg] [facility] Oxygen saturation in Arterial blood by Pulse oximetry 99 % 99 % [facility] ([facility]) Body height 64 [in_i] 64 [in_i] [facility] ([facility]) 5'4" Body weight 149.50 [lb_av] 149.50 [[facility]_av] [facility] Body mass index (BMI) [Ratio] 25.7 kg/m2 25.7 k g/m2 [facility] ([facility]) [place] body weight 120 [lb_av] 120 [lb_av] [facility] Body weight 67.813 kg 67.813 kg [facility] ([facility]) Body surface area Derived from formula 1.73 m2 1.73 m2 [facility] ([facility]) Diastolic blood pressure 68 mm[Hg] 68 mm[Hg] [facility] ([facility]) Heart rate 90 /min 90 /min [facility] ([facility]) Oxygen saturation in Arterial blood by Pulse oximetry 99 % 99 % [facility] ([facility]) Body height 64 [in_i] 64 [in_i] [facility] ([facility]) 5'4" Body weight 149.50 [lb_av] 149.50 [lb_av] [facility] T ([facility]) Body mass index (BMI) [Ratio] 25.7 kg/m2 25.7 k g/m2 [facility] ([facility]) [place] body weight 120 [lb_av] 120 [lb_av] MED[facility] T ([facility]) Body weight 67.813 kg 67.813 kg [facility] ([facility]) Body surface area Derived from formula 1.73 m2 1.73 m2 [facility] ([facility]) Body height 64 [in_i] 64 [in_i] [facility] ([facility]) 5'4" Oxygen saturation in Arterial blood by Pulse oximetry 99 % 99 % [facility] ([facility]) Body weight 156.00 [lb_av] 156.00 [lb_av] [facility] Body mass index (BMI) [Ratio] 26.8 kg/m2 26.8 k g/m2 [facility] ([facility]) [place] body weight 120 [lb_av] 120 [lb_av] [facility] Body weight 70.762 kg 70.762 kg [facility] ([facility]) Body surface area Derived from formula 1.76 m2 1.76 m2 [facility] ([facility]) Systolic blood pressure 122 mm[Hg] 122 mm[Hg] [facility] Diastolic blood pressure 80 mm[Hg] 80 mm[Hg] [facility] ([facility]) Heart rate 86 /min 86 /min [facility] ([facility]) Oxygen saturation in Arterial blood by Pulse oximetry 99 % 99 % [facility] ([facility]) Body height 64 [in_i] 64 [in_i] [facility] ([facility]) 5'4" Body weight 156.00 [lb_av] 156.00 [lb_av] [facility] T ([facility]) Body mass index (BMI) [Ratio] 26.8 kg/m2 26.8 k g/m2 [facility] ([facility]) [place] body weight 120 [lb_av] 120 [lb_av] [facility] T ([facility]) Body weight 70.762 kg 70.762 kg [facility] ([facility]) Body surface area Derived from formula 1.76 m2 1.76 m2 [facility] ([facility]) Body surface area Derived from formula 1.76 m2 1.76 m2 [facility] ([facility]) Systolic blood pressure 116 mm[Hg] 116 mm[Hg] [facility] ([facility]) Diastolic blood pressure 78 mm[Hg] 78 mm[Hg] [facility] ([facility]) Heart rate 67 /min 67 /min [facility] ([facility]) Oxygen saturation in Arterial blood by Pulse oximetry 99 % 99 % [facility] ([facility]) Body temperature 97.3 [degF] 97.3 [degF] [facility] ([facility]) Body height 64 [in_i] 64 [in_i] [facility] ([facility]) 5'4" Body weight 155.00 [lb_av] 155.00 [lb_av] [facility] Body mass index (BMI) [Ratio] 26.6 kg/m2 26.6 k g/m2 [facility] ([facility]) [place] body weight 120 [lb_av] 120 [lb_av] MED[facility] T ([facility]) Body weight 70.308 kg 70.308 kg [facility] ([facility]) ID Date Data Source [id number] 08/15/2021 10:08:56 AM EDT [facility] Name Value Range Interpretation Code Description Data Source(s) WEIGHT RECORDED 160.00 pounds 160.00 pounds [facility] Height 64 Inches 064 Inches [facility]
== END 2021-09-16 16:33 | disposition home or self-care (01) ==
LOC: M ED 11:15
DX: S90.121A Contusion of right lesser toe(s) without damage to nail, initial encounter (principal); W22.03XA Walked into furniture, initial encounter; Y92.099 Unspecified place in other non-institutional residence as the place of occurrence of the external cause; Y93.9 Activity, unspecified; Y99.9 Unspecified external cause status; E03.9 Hypothyroidism, unspecified; J45.909 Unspecified asthma, uncomplicated; F17.200 Nicotine dependence, unspecified, uncomplicated; Z79.899 Other long term (current) drug therapy

== ENCOUNTER 2022-04-22 08:57 | Day surgery (SDC) | payer OTHER ==
[~2022-04-22] VITALS: Ht 162.6 cm; Wt 79.3 kg
[~2022-04-22 08:57] MED LIST changes: +ASHW500C PO; +HEPARIN SOD (PORCINE) 5000UNITS/ML 1ML VIAL/SYRINGE SQ ONE; +KP F1200 PO; +LIDOCAINE 2% 100MG/5ML SDV (FOR ANES.) As Ordered ONE; +MIDAZOLAM INJ 2MG/2ML VIAL (J2250 PER 1MG) As Ordered ONE; +MIRE1IUD IU; +MIRT1TAB15 PO; +MULT-90 PO; +ONDANSETRON 4MG/2ML VIAL As Ordered ONE; +ceFAZolin SOD 2 GM in IV 1 EA IV ONE; +dexameTHASONE 4 MG/ML 1ML VIAL (J1100 PER 1MG) As Ordered ONE; +fentaNYL 100 MCG/2 ML INJECTION As Ordered ONE; +propofoL 200 MG/20 ML VIAL As Ordered ONE
[2022-04-22 09:23] VITALS: BP 108/69
[2022-04-22] MEDS ORDERED: LR 1,000 ML IV SCH (09:25)
== END 2022-04-22 10:24 | disposition home or self-care (01) ==
LOC: M SDC 08:57
PROVIDERS: ATTEND Surgery
DX: N60.22 Fibroadenosis of left breast (principal); Z53.8 Procedure and treatment not carried out for other reasons
CPT/HCPCS: 36415; 81025; 86850; 86900; 86901; J2250; J3010

== ENCOUNTER → 2022-05-01 | Outpatient (CLI) | payer OTHER ==
[~2022-05-01] MED LIST changes: -HEPARIN SOD (PORCINE) 5000UNITS/ML 1ML VIAL/SYRINGE SQ ONE; -LIDOCAINE 2% 100MG/5ML SDV (FOR ANES.) As Ordered ONE; -MIDAZOLAM INJ 2MG/2ML VIAL (J2250 PER 1MG) As Ordered ONE; -ONDANSETRON 4MG/2ML VIAL As Ordered ONE; -ceFAZolin SOD 2 GM in IV 1 EA IV ONE; -dexameTHASONE 4 MG/ML 1ML VIAL (J1100 PER 1MG) As Ordered ONE; -fentaNYL 100 MCG/2 ML INJECTION As Ordered ONE; -propofoL 200 MG/20 ML VIAL As Ordered ONE
== END ==
LOC: M LABSMTC 11:41
PROVIDERS: ATTEND Anesthesiology
DX: Z01.812 Encounter for preprocedural laboratory examination (principal); Z20.822 Contact with and (suspected) exposure to COVID-19

== ENCOUNTER 2022-05-06 06:02 | Day surgery (SDC) | payer OTHER ==
[~2022-05-06] VITALS: Ht 162.6 cm; Wt 81.4 kg
[~2022-05-06 06:02] MED LIST changes: +HEPARIN SOD (PORCINE) 5000UNITS/ML 1ML VIAL/SYRINGE SQ ONE; +ceFAZolin SOD 2 GM in IV 1 EA IV ONE
[2022-05-06] MEDS ORDERED: LR 1,000 ML IV SCH ×2 (07:00→09:00)
[2022-05-06] MEDS ORDERED: MIDAZOLAM INJ 2MG/2ML VIAL (J2250 PER 1MG) As Ordered ONE (07:07)
[2022-05-06] MEDS ORDERED: fentaNYL 100 MCG/2 ML INJECTION As Ordered ONE (07:08)
[2022-05-06] MEDS ORDERED: dexameTHASONE 4 MG/ML 1ML VIAL (J1100 PER 1MG) As Ordered ONE ×2 (07:10→07:11)
[2022-05-06] MEDS ORDERED: propofoL 200 MG/20 ML VIAL As Ordered ONE (07:11)
[2022-05-06] MEDS ORDERED: LIDOCAINE 1% SDV 30ML VIAL As Ordered ONE (07:12)
[2022-05-06] MEDS ORDERED: BUPIVACAINE HCL 0.25% 30ML VIAL As Ordered ONE (07:12)
[2022-05-06] MEDS ORDERED: ACETAMINOPHEN 1000MG 100ML IV BTL (OFIRMEV) (J0131 PER 10MG) As Ordered ONE (07:48)
[2022-05-06] MEDS ORDERED: ONDANSETRON 4MG 2ML VIAL As Ordered ONE ×2 (07:49→07:50)
[2022-05-06] MEDS ORDERED: ONDANSETRON 4MG 2ML VIAL IV PRN (09:00)
[2022-05-06] MEDS ORDERED: MORPHINE 2 MG/ML 1ML VIAL IV PRN (09:00)
[2022-05-06] MEDS ORDERED: oxyCODONE 5MG TAB PO PRN (09:00)
[2022-05-06] MEDS ORDERED: fentaNYL 100 MCG/2 ML INJECTION IV PRN (09:00)
[2022-05-06] MEDS ORDERED: ROXI1TAB2 PO (09:38)
[2022-05-06 10:55] VITALS: BP 121/60
== END 2022-05-06 11:00 | disposition home or self-care (01) ==
LOC: M SDC 06:02
PROVIDERS: ATTEND Surgery
DX: N60.22 Fibroadenosis of left breast (principal); G43.909 Migraine, unspecified, not intractable, without status migrainosus; F90.9 Attention-deficit hyperactivity disorder, unspecified type; J45.909 Unspecified asthma, uncomplicated; Z87.891 Personal history of nicotine dependence; Z79.51 Long term (current) use of inhaled steroids; Z79.899 Other long term (current) drug therapy; F41.9 Anxiety disorder, unspecified; F32.A Depression, unspecified; F43.10 Post-traumatic stress disorder, unspecified
CPT/HCPCS: 19120; 36415; 81025; 86850; 86900; 86901; 88307; J0131; J0690; J1100; J1644; J2250; J2405; J3010